=== PATIENT | female | born 1940 | race Caucasian/White ===

== ENCOUNTER → 2018-03-14 12:10 | Outpatient (CLI) | payer MEDICARE, OTHER, SELFPAY ==
--- NOTE | 2018-03-14 | DI.RAD.S_ITS ---
PROCEDURE: XR HIP W PEL IF DONE LT MIN 4V INDICATIONS: PAIN IN LEFT HIP TECHNIQUE: AP pelvis with lateral view(s) of the bilateral hips. COMPARISON: [facility], PELVIS WITH BILATERAL HIPS, 04/24/2011, 9:22. FINDINGS: Bones: No fractures or dislocations. Pelvic ring appears intact. No suspicious bony lesions. Moderate hip joint osteoarthritis which has only slightly worsened from the comparison study from April of 2011.. Soft tissues: The visualized bowel gas pattern is normal. No suspicious soft tissue calcifications. IMPRESSION: Only mild interval worsening of degenerative hip joint osteoarthritis is found bilaterally, with reference to the prior study from April of 2011. Dictated by: Clifton Ross M.D. on 03/14/2018 at 13:52 Approved by: Clifton Ross M.D. on 03/14/2018 at 13:53
== END ==
PROVIDERS: PCP Dermatology; Visit Provider Physician Assistant
DX: M25.552 Pain in left hip (principal); M16.0 Bilateral primary osteoarthritis of hip
CPT/HCPCS: 73522

== ENCOUNTER → 2018-05-07 11:53 | Outpatient (CLI) | payer MEDICARE, OTHER, SELFPAY ==
--- NOTE | 2018-05-07 11:56 | DI.RAD.S_ITS ---
PROCEDURE: XR LUMBAR SPINE 2-3V INDICATIONS: OTHER DORSALGIA TECHNIQUE: 3 views of the lumbar spine were acquired. COMPARISON: [facility], CT, PE STUDY (CTA CHEST), 04/21/2015, 19:14. [facility], CR, CHEST 2 VIEW, 12/17/2014, 11:59. [facility], CR, CHEST 1 VIEW, 04/21/2015, 18:09. FINDINGS: Bones: 5 [id number] vertebrae are present. There is normal bony alignment. No vertebral body compression fractures. No suspicious bony lesions. There is degenerative disc disease, moderate at L2 at L3, and mild at L1-L2, L3-L4 and L4-L5. Mild to moderate facet arthropathy is present at L3 and L4, L4-L5 and L5-S1. Soft tissues: Overlying bowel gas pattern is normal. There is a large calcified gallstone. IMPRESSION: 1. 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 2. A large gallstone. Dictated by: Iesha Schneider M.D. on 05/07/2018 at 17:05 Approved by: Iesha Schneider M.D. on 05/07/2018 at 17:14
== END ==
PROVIDERS: PCP Dermatology; Visit Provider Physician Assistant
DX: M54.89 Other dorsalgia (principal); M47.816 Spondylosis without myelopathy or radiculopathy, lumbar region; M47.817 Spondylosis without myelopathy or radiculopathy, lumbosacral region; M51.36 Other intervertebral disc degeneration, lumbar region; M51.37 Other intervertebral disc degeneration, lumbosacral region; K80.20 Calculus of gallbladder without cholecystitis without obstruction
CPT/HCPCS: 72100

== ENCOUNTER → 2018-05-13 08:51 | Outpatient (CLI) | payer MEDICARE, OTHER, SELFPAY ==
--- NOTE | 2018-05-13 09:06 | DI.CT.S_ITS ---
PROCEDURE: CT CHEST ABD PEL W CON INDICATIONS: PULMONARY NODULE/GALLSTONES TECHNIQUE: After the administration of oral and intravenous contrast, 5 mm thick sections acquired from the lung apices to the symphysis. 5 mm coronal and sagittal reformats were performed, with additional 7 mm coronal MIP reformats through the lungs. For radiation dose reduction, the following was used: automated exposure control, adjustment of mA and/or kV according to patient size. COMPARISON: [facility], CT, PE STUDY (CTA CHEST), 04/21/2015, 19:14. FINDINGS: Image quality: Excellent. CHEST: Lungs and pleura: No acute airspace opacities, and the previously identified scattered bilateral pulmonary nodules identified 04/21/[address] scanning through the chest are virtually identical in appearance to that previously present on today's study. Benign etiology is established given this absence of foreign exchange services manager time, and presumably these represent foci of lung scarring from prior focal inflammatory events. No pleural effusions or pneumothorax. Central and peripheral airways appear patent and normal in caliber. Mediastinum: Heart size is normal. No pericardial effusion. No mediastinal or hilar adenopathy by size criteria. Thoracic aorta and central pulmonary arteries are normal in size. Esophagus is normal in caliber. No hiatal hernia. Chest wall: No axillary or supraclavicular adenopathy by size criteria. Thyroid gland appears normal. ABDOMEN: Solid organs: Liver is normal in size and enhancement. Gallbladder contains a large previously present peripherally calcified gallstone measuring up to 4.0 cm AP and 2.4 cm transverse.. Biliary system is non dilated. Pancreas enhances normally. Spleen is normal in size and enhancement. No adrenal nodules. Kidneys demonstrate normal size and enhancement, without hydronephrosis. Peritoneum and bowel: Bowel loops demonstrate normal wall thickness and caliber. No free fluid or air. Nodes and vessels: No retroperitoneal or mesenteric adenopathy by size criteria. Aorta and inferior vena cava are normal in size. Miscellaneous: No ventral hernias. PELVIS: Genitourinary: Bladder wall thickness is normal. Miscellaneous: No inguinal hernias or adenopathy. Normal appendix right lower quadrant. Mild to moderate sigmoid diverticulosis without acute diverticulitis. Bones: No suspicious bony lesions. No vertebral body compression fractures. IMPRESSION: 1. Scattered within the lung parenchyma are stable appearing small pulmonary nodules which are virtually identical to the nodules previously seen on chest CT scanning from 04/21/15. Benign etiology, presumably from prior focal inflammatory events and subsequent scarring. No new nodules are found. No followup is recommended. 2. There is a large peripherally calcified gallstone again noted within the gallbladder lumen, measuring up to 4 cm AP and 2.4 cm transverse, without associated gallbladder inflammation or biliary obstruction. This also is unchanged from 2016. Dictated by: Clifton Ross M.D. on 05/13/2018 at 11:04 Approved by: Clifton Ross M.D. on 05/13/2018 at 11:15
== END ==
PROVIDERS: PCP Dermatology; Visit Provider Physician Assistant
DX: R91.8 Other nonspecific abnormal finding of lung field (principal); K80.20 Calculus of gallbladder without cholecystitis without obstruction
CPT/HCPCS: 71260; 74177; Q9967

== ENCOUNTER → 2018-07-18 08:51 | Outpatient (CLI) | payer MEDICARE, OTHER, SELFPAY ==
[2018-07-18 10:22] LABS: Alanine Aminotransferase 22 IU/L (9-52); Albumin 4.3 g/dL (3.5-5.0); Albumin Globulin Ratio 1.7 (1.0-2.8); Alkaline Phosphatase 67 U/L (38-126); Aspartate Aminotransferase 21 IU/L (14-36); BUN Creatinine Ratio 28.3 (6-22); Bilirubin Total 0.5 mg/dL (0.2-1.3); Blood Urea Nitrogen 17 mg/dL (7-17); C-Reactive Protein Quant 0.7 mg/dL (<1.0); Calcium 9.5 mg/dL (8.4-10.2); Carbon Dioxide 26 mmol/L (22-32); Chloride 105 mmol/L (98-107); Cholesterol 157 mg/dL (140-199); Estimated Glomerular Filt Rate > 60.0 mL/min (>60); Globulin 2.6 g/dL (1.7-4.1); Glucose 113 mg/dL (80-110); HDL Cholesterol 39 mg/dL (40-60); HEMOLYSIS < 15 (0-50); LDL Cholesterol Calculated 70 mg/dL (<100); Potassium 4.2 mmol/L (3.4-5.1); Sodium 140 mmol/L (137-145); Total Protein 6.9 g/dL (6.3-8.2); Triglycerides 242 mg/dL (35-150)
[2018-07-18 10:47] LABS: Erythrocyte Sedimentation Rate 9 MM/HR (0-20)
[2018-07-18 10:53] LABS: Hemoglobin A1C% w Est Avg Glu 5.6 % (4.0-6.0)
[2018-07-18 11:24] LABS: Thyroid Stimulating Hormone 0.67 uIU/mL (0.47-4.68)
[2018-07-20 14:39] LABS: Parathyroid Hormone Int 56 pg/mL (14-64)
[2018-07-20 15:19] LABS: ANA Screen, IFA Negative (Negative)
== END ==
PROVIDERS: Visit Provider Internal Medicine
DX: N94.819 Vulvodynia, unspecified (principal); R73.03 Prediabetes; E03.9 Hypothyroidism, unspecified; E21.0 Primary hyperparathyroidism; E78.2 Mixed hyperlipidemia; I10 Essential (primary) hypertension
CPT/HCPCS: 36415; 80053; 80061; 83036; 83970; 84443; 85651; 86038; 86140

== ENCOUNTER 2018-12-01 09:51 | Emergency (ER) | payer MEDICARE, OTHER, SELFPAY ==
[2018-12-01 10:04] VITALS: BP 168/84; PULSE 64; RESP 18; TEMP 36.9; O2SAT 97
[2018-12-01] MEDS: LIDOCAINE PATCH 1 EACH ADH..PATCH TOP (11:46)
[2018-12-01] MEDS: CYCLOBENZAPRINE 5 MG TABLET 10 MG PO (11:47)
--- NOTE | 2018-12-01 12:03 | ED_ITS ---
HPI - Back Pain/Injury <Angelito RosasNAOMIE Sanders - Last Filed: 12/01/18 12:40> General Chief Complaint: Back Pain/Injury Stated Complaint: Low back spasms Time Seen by Provider: 12/01/18 11:16 Source: patient Limitations: no limitations History of Present Illness HPI Narrative: This is a 78-year-old female, former smoker, who presents to ED with spouse with chief complain of left lower back pain which radiates to hip and lateral/anterior leg down to ankle. Patient reports this has been ongoing problem but she is here to request some muscle relaxant since she has upcoming trip to [place] in 2 days. Patient denies urinary symptoms, fever, incontinence for urine or stool, saddle anesthesia. Patient reports has some weakness to left leg but this is not a new finding. Patient has been using [id number] Tylenol and Aleve, using alternating heat and warm packs for discomfort at home. She has been feeling spasming discomfort on her left back for last 2 days. Patient reports pain increases with twisting motion and changing in positions. She used to see physical therapy but had stopped last several months due to patient had cholecystectomy surgery. Patient is ambulatory in stable gait. Related Data Home Medications Medication Instructions Recorded Confirmed aspirin 81 mg PO QDAY #0 03/08/16 cetirizine 10 mg PO QDAY #0 03/08/16 losartan [Cozaar] 25 mg #0 03/08/16 metoprolol succinate [Toprol XL] 25 mg PO QDAY #0 03/08/16 simvastatin 20 mg PO HS #0 03/08/16 tramadol 100 mg PO #0 03/08/16 Previous Rx's Medication Instructions Recorded cyclobenzaprine 5 - 10 mg PO BID PRN #7 tab 12/01/18 lidocaine 1 patch TOP DAILY #15 each 12/01/18 Allergies Allergy/AdvReac Type Severity Reaction Status Date / Time Penicillins [PENICILLINS] Allergy Unknown Verified 12/01/18 10:07 tizanidine [TIZANIDINE] Allergy Unknown Verified 12/01/18 10:07 Review of Systems <Angelito BurgosNAOMIE lindquist - Last Filed: 12/01/18 12:40> Review of Systems Narrative: General: Denies fever, chills, fatigue, malaise, sweats. HEENT: Denies sinus pain, ear pain, sore throat, difficulty swallowing, dizziness. Respiratory: Denies dyspnea, cough, wheezing, hemoptysis, sputum. Cardiovascular: Denies chest pain, palpitations, orthopnea, edema. Gastrointestinal: Denies nausea, vomiting, abdominal pain, diarrhea, constipation, melena. : Denies dysuria, frequency, incontinence, hematuria, urinary retention. Musculoskeletal: See HPI Skin: Denies rash, skin lesions, or other. Neurologic: Denies weakness, headache, numbness, change in speech, confusion, seizures, incoordination. Psychiatric: No concerning psychosocial issues. 12-point review of systems is negative except for those stated above. Patient History <NAOMIE Sullivan - Last Filed: 12/01/18 12:40> Surgical History History of parathyroidectomy (Acute) Social History Smoking Status: Former smoker alcohol intake frequency: 0-2 drinks per day Substance Use Type: does not use Exam <NAOMIE Sullivan - Last Filed: 12/01/18 12:40> Narrative Exam Narrative: General appearance: well developed, well nourished, in no acute distress. Head: normocephalic, atraumatic, no scalp lesions, non-tender. Eye: pupil equal, round. EOMI. Nose: nares patent. Oral: mucosa moist. Neck/Thyroid: neck supple, full range of motion, no visible masses. Skin: no suspicious rashes, lesions over visible areas. Warm and dry. Heart: no clubbing, no cyanosis, no edema. Lungs: Breathing even and unlabored. No stridor. No accessory muscles used. Chest: normal shape and expansion. Abdomen: non-obese, non-distended. Neurologic: alert and oriented. Cognitive exam, VIDEO EDITOR and PNS grossly intact on informal exam. Psych: good eye contact, normal affect. Initial Vital Signs Initial Vital Signs: Vital Signs Temperature 98.4 F 12/01/18 10:04 Pulse Rate 64 12/01/18 10:04 Respiratory Rate 18 12/01/18 10:04 Blood Pressure 168/84 H 12/01/18 10:04 Pulse Oximetry 97 12/01/18 10:04 Back/Spine/Pelvis Thoracic/Lumbar Spine: thoracic and lumbar spine normal to inspection, thoraco- lumbar ROM normal (Limited due to pain), pain with thoraco-lumbar ROM, para spinal tenderness (On left side), thoraco-lumbar ROM limited (Due to pain), thoraco-lumbar spasm, No thoracic spinal tenderness and No lumbar spinal ten derness <Shellie Putnam DO - Last Filed: 12/01/18 17:57> Initial Vital Signs Initial Vital Signs: Vital Signs Temperature 98.4 F 12/01/18 10:04 Pulse Rate 64 12/01/18 10:04 Respiratory Rate 18 12/01/18 10:04 Blood Pressure 168/84 H 12/01/18 10:04 Pulse Oximetry 97 12/01/18 10:04 Course <NAOMIE Sullivan - Last Filed: 12/01/18 12:40> Orders Ordered: Discontinued Medications Cyclobenzaprine HCl (Flexeril) 10 mg PO NOW ONE Stop: 12/01/18 11:31 Last Admin: 12/01/18 11:47 Dose: 10 mg Documented by: GIGIE Lidocaine (Lidoderm) 1 each TOP NOW ONE Stop: 12/01/18 11:31 Last Admin: 12/01/18 11:46 Dose: 1 each Documented by: AJ Vital Signs Vital signs: Vital Signs - 8 hr 12/01/18 10:04 12/01/18 12:05 Temperature 98.4 F Pulse Rate 64 51 L Respiratory Rate 18 17 Blood Pressure 168/84 H Blood Pressure [Right Arm] 161/64 H Pulse Oximetry 97 95 <Shellie Putnam DO - Last Filed: 12/01/18 17:57> Orders Ordered: Discontinued Medications Cyclobenzaprine HCl (Flexeril) 10 mg PO NOW ONE Stop: 12/01/18 11:31 Last Admin: 12/01/18 11:47 Dose: 10 mg Documented by: RSTONE Lidocaine (Lidoderm) 1 each TOP NOW ONE Stop: 12/01/18 11:31 Last Admin: 12/01/18 11:46 Dose: 1 each Documented by: AJ Vital Signs Vital signs: Vital Signs - 8 hr 12/01/18 10:04 12/01/18 12:05 Temperature 98.4 F Pulse Rate 64 51 L Respiratory Rate 18 17 Blood Pressure 168/84 H Blood Pressure [Right Arm] 161/64 H Pulse Oximetry 97 95 [facility] - Back Pain/Injury <NAOMIE Sullivan - Last Filed: 12/01/18 12:40> Differential Diagnosis Differential diagnosis: Likely lumbar radiculopathy Medical Records Attestation: I reviewed the patient's medical records. [facility] Narrative Medical decision making narrative: This is a 78-year-old female with a history of left-sided low back pain with spasm/tightness with sciatica who presents to ED requesting muscle relaxant in anticipation for trip to [place] in 2 days. Patient does not have fever, rash, incontinence, saddle anesthesia. Patient was medicated with 1st dose of lidocaine patch and Flexeril and discharged to home with same medications. Medication precautions for Flexeril discussed with the patient. Patient advised to follow up with primary care physician and physical therapist for ongoing back pain. Return precautions were discussed and patient verbalized understanding and agrees with the treatment plan. Discharge Plan Departure Patient Disposition: Home Clinical Impression: Low back pain Qualifiers: Chronicity: unspecified Back pain laterality: left Sciatica presence: with sciatica Sciatica laterality: sciatica of left side Qualified Code(s): M54.42 - Lumbago with sciatica, left side Discharge Date/Time: 12/01/18 12:11 Instructions: DI for Low Back Pain Activity Restrictions/Additional Instructions: You have been diagnosed with [left-sided low back pain with sciatica. Please continue with her physical therapy and home exercises]. What to do: *Take your medications as directed. Lidocaine patch stays on for 12 hours and off for 12 hours. Flexeril is muscle relaxant any may make you sleepy so please take precautions such as not driving, drinking alcohol, or operating heavy equipments. Continue to take [id number] Tylenol and or Motrin/Aleve with food. *Follow up with your primary care provider in 2-3 days, call for an appointment. Let them know you were seen in the ED and that we asked you to be seen in follow up. *Return to ED if you have any new, worsening, or concerning symptoms, such as [worsening discomfort, increasing weakness to her legs, incontinence, rash on your low back, fever, urinary symptoms, or any acute concerns. Have a safe trip to [place]]. Prescriptions: New cyclobenzaprine 10 mg tablet 5 - 10 mg PO BID PRN (Reason: muscle spasm) Qty: 7 RF: 0 lidocaine 5 % adhesive patch,medicated 1 patch TOP DAILY Qty: 15 RF: 0 No Action cetirizine 10 MG tablet,chewable 10 mg PO QDAY Qty: 0 RF: 0 simvastatin 20 MG tablet 20 mg PO HS Qty: 0 RF: 0 losartan [Cozaar] 25 MG tablet 25 mg Qty: 0 RF: 0 aspirin 81 MG tablet,chewable 81 mg PO QDAY Qty: 0 RF: 0 metoprolol succinate [Toprol XL] 25 MG tablet extended release 24 hr 25 mg PO QDAY Qty: 0 RF: 0 tramadol 100 MG tablet, ER multiphase 24 hr 100 mg PO Qty: 0 RF: 0 Referrals: Melody Lucero MD [Primary Care Provider] -
[2018-12-01 12:05] VITALS: BP 161/64; PULSE 51; RESP 17; O2SAT 95
== END 2018-12-01 12:11 | disposition home or self-care (01) ==
PROVIDERS: Emergency Provider Nurse Practitioner Family; PCP Internal Medicine
DX: M54.42 Lumbago with sciatica, left side (principal)
CPT/HCPCS: 99282; 99283

== ENCOUNTER → 2019-01-28 14:24 | Outpatient (ROUT) | payer MEDICARE, OTHER, SELFPAY | PROVIDERS: PCP Internal Medicine; Visit Provider Internal Medicine | DX: R10.2 Pelvic and perineal pain (principal) | CPT/HCPCS: 87077; 87086; 87186 ==

== ENCOUNTER → 2019-02-17 16:00 | Outpatient (ROUT) | payer MEDICARE, OTHER, SELFPAY ==
[2019-02-17 16:24] LABS: Hematocrit 44.9 % (36-46); Mean Corpuscular HGB Conc 33.5 % (30-36); Mean Corpuscular Hemoglobin 30.3 PG (26-34); Mean Corpuscular Volume 90.2 fL (80-100); Platelet Count 221 X10^3/uL (150-400); Red Blood Cell Count 4.97 X10^6/uL (4.0-5.2); Red Cell Distribution Width 13.4 % (11.6-14.8); White Blood Cell Count 7.7 X10^3/uL (4.5-11.0)
[2019-02-17 16:34] LABS: Alanine Aminotransferase 26 IU/L (<35); Albumin 4.4 g/dL (3.5-5.0); Albumin Globulin Ratio 1.8 (1.0-2.8); Alkaline Phosphatase 65 U/L (38-126); Aspartate Aminotransferase 26 IU/L (14-36); BUN Creatinine Ratio 21.4 (6-22); Bilirubin Total 0.6 mg/dL (0.2-1.3); Blood Urea Nitrogen 15 mg/dL (7-17); Carbon Dioxide 28 mmol/L (22-32); Chloride 101 mmol/L (98-107); Estimated Glomerular Filt Rate > 60.0 mL/min (>60); Globulin 2.5 g/dL (1.7-4.1); Glucose 105 mg/dL (80-110); HEMOLYSIS < 15 (0-50); Potassium 4.4 mmol/L (3.4-5.1); Sodium 139 mmol/L (137-145); Total Protein 6.9 g/dL (6.3-8.2)
[2019-02-17 18:55] LABS: Neutrophils Absolute Manual 4928 /uL (3000-5900); Total Cells Counted 100
== END ==
PROVIDERS: PCP Internal Medicine; Visit Provider Internal Medicine
DX: R10.9 Unspecified abdominal pain (principal)
CPT/HCPCS: 80053; 85025

== ENCOUNTER → 2019-02-18 10:35 | Outpatient (CLI) | payer MEDICARE, OTHER, SELFPAY ==
--- NOTE | 2019-02-18 11:19 | DI.CT.S_ITS ---
PROCEDURE: CT ABDOMEN PELVIS W CON INDICATIONS: Unspecified abdominal pain TECHNIQUE: After the administration of oral and intravenous contrast, 5 mm thick sections acquired from the diaphragms to the symphysis. 5 mm thick coronal and sagittal reformats were performed. For radiation dose reduction, the following was used: automated exposure control, adjustment of mA and/or kV according to patient size. COMPARISON: [facility], CT, PE STUDY (CTA CHEST), 04/21/2015, 19:14. [facility], CT, CT CHEST ABD PEL W CON, 05/13/2018, 10:11. FINDINGS: Image quality: Excellent. ABDOMEN: Lung bases: There multiple lung nodules at lung bases bilaterally, unchanged in size compared to 05/13/2018. Heart size is normal. There is a small hiatal hernia. Solid organs: Mild hepatic steatosis. Liver is normal in size and enhancement. Gallbladder is nonvisualized, consistent with cholecystectomy. Biliary system is non-dilated. Pancreas enhances normally. Spleen is normal in size and enhancement. No adrenal nodules. Kidneys are normal in size and enhancement, without hydronephrosis. Peritoneum and bowel: Stomach, small bowel, and colon loops are normal in caliber and wall thickness. Normal appendix. There are multiple colonic diverticula. No findings to suggest diverticulitis. No free fluid or air. Nodes and vessels: No retroperitoneal or mesenteric adenopathy. Aorta and inferior vena cava are normal in caliber. Miscellaneous: No ventral hernias. PELVIS: Genitourinary: Bladder wall thickness is normal. Uterus is absent consistent with hysterectomy. Ovaries are unremarkable. No pathological free fluid in pelvis. Miscellaneous: No inguinal hernias or adenopathy. Bones: No suspicious bony lesions. No vertebral body compression fractures. IMPRESSION: 1. Diverticulosis without acute diverticulitis. 2. Multiple small pulmonary nodules at lung bases bilaterally, unchanged in size. 3. Small hiatal hernia. 4. Hepatic steatosis. Dictated by: Iesha Schneider M.D. on 02/18/2019 at 16:12 Approved by: Iesha Schneider M.D. on 02/18/2019 at 18:22
== END ==
PROVIDERS: PCP Internal Medicine; Visit Provider Internal Medicine
DX: R10.9 Unspecified abdominal pain (principal); R91.8 Other nonspecific abnormal finding of lung field; K44.9 Diaphragmatic hernia without obstruction or gangrene; K76.0 Fatty (change of) liver, not elsewhere classified; K57.90 Diverticulosis of intestine, part unspecified, without perforation or abscess without bleeding
CPT/HCPCS: 74177; Q9967

== ENCOUNTER → 2019-08-12 18:20 | Outpatient (ROUT) | payer MEDICARE, OTHER, SELFPAY | PROVIDERS: PCP Internal Medicine; Visit Provider Internal Medicine | DX: N76.1 Subacute and chronic vaginitis (principal) | CPT/HCPCS: 87070; 87205 ==

== ENCOUNTER → 2019-08-21 14:57 | Outpatient (ROUT) | payer MEDICARE, OTHER, SELFPAY ==
[2019-08-21 15:36] LABS: Alanine Aminotransferase 26 IU/L (<35); Albumin 4.1 g/dL (3.5-5.0); Albumin Globulin Ratio 1.8 (1.0-2.8); Alkaline Phosphatase 63 U/L (38-126); Aspartate Aminotransferase 33 IU/L (14-36); BUN Creatinine Ratio 23.1 (6-22); Bilirubin Total 0.6 mg/dL (0.2-1.3); Blood Urea Nitrogen 15 mg/dL (7-17); Calcium 9.9 mg/dL (8.4-10.2); Carbon Dioxide 27 mmol/L (22-32); Chloride 104 mmol/L (98-107); Cholesterol 123 mg/dL (140-199); Estimated Glomerular Filt Rate > 60.0 mL/min (>60); Globulin 2.3 g/dL (1.7-4.1); Glucose 112 mg/dL (80-110); HDL Cholesterol 46 mg/dL (40-60); HEMOLYSIS 16 (0-50); LDL Cholesterol Calculated 48 mg/dL (<100); Potassium 4.4 mmol/L (3.4-5.1); Sodium 137 mmol/L (137-145); Total Protein 6.4 g/dL (6.3-8.2); Triglycerides 145 mg/dL (35-150)
== END ==
PROVIDERS: PCP Internal Medicine; Visit Provider Internal Medicine
DX: R73.03 Prediabetes (principal)
CPT/HCPCS: 80053; 80061; 83036

== ENCOUNTER → 2019-09-19 09:08 | Outpatient (CLI) | payer MEDICARE, OTHER, SELFPAY ==
--- NOTE | 2019-09-19 | DI.MRI.S_ITS ---
PROCEDURE: MR CERVICAL SPINE WO CON INDICATIONS: Radiculopathy, cervical region TECHNIQUE: Noncontrast sagittal T1 spin echo and T2 fast spin echo, sagittal STIR, foraminal oblique sagittal T2 fast spin echo, and axial gradient echo or T2 fast spin echo through the cervical spine. COMPARISON: [facility], , C-SPINE WITHOUT CONTRAST, 02/18/2015, 7:33. FINDINGS: There are postsurgical changes of C4-C7 ACDF by means of anterior plate and screws with interbody devices. Straightening of the usual cervical lordosis at the operative levels. Anterolisthesis of C3 on C4 measuring approximately 2 millimeters. Otherwise normal alignment. Vertebral body heights maintained. No suspicious focal marrow signal abnormality or bone marrow edema demonstrated. 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 Otherwise normal cord signal. No syrinx. Prevertebral and paraspinous soft tissues unremarkable. C2-C3: No spinal canal or neural foraminal stenosis. C3-C4: Disc osteophyte complex flattens the ventral cord producing overall mild spinal canal stenosis. Facet and uncovertebral hypertrophy contribute to moderate right and mild left neural foraminal stenosis. C4-C5: Posterior disc osteophyte complex flattens the ventral cord on the left. There is overall mild spinal canal stenosis. Facet and uncovertebral hypertrophy contribute to mild neural foraminal narrowing on the left. C5-C6: No spinal canal stenosis despite posterior disc osteophyte complex. Facet and uncovertebral hypertrophy contribute to mild bilateral neural foraminal stenosis. C6-C7: Posterior disc osteophyte complex flattens the ventral cord. Facet and uncovertebral hypertrophy contribute to mild bilateral neural foraminal stenosis. C7-T1: Posterior disc osteophyte complex without mass effect upon the cord. Facet and uncovertebral hypertrophy contribute to moderate bilateral neural foraminal stenosis. IMPRESSION: Postsurgical changes of C4-C7 ACDF. Multilevel multifactorial degenerative changes. Varying degrees of neural foraminal narrowing is worst at C3-C4 and C7-T1, consistent with adjacent segment disease. Dictated by: Agus Benedict M.D. on 09/19/2019 at 10:43 Approved by: Agus Benedict M.D. on 09/19/2019 at 11:01
== END ==
PROVIDERS: PCP Internal Medicine; Referring Provider Internal Medicine; Visit Provider Internal Medicine
DX: M48.02 Spinal stenosis, cervical region (principal); M48.03 Spinal stenosis, cervicothoracic region; M47.22 Other spondylosis with radiculopathy, cervical region; Z98.1 Arthrodesis status
CPT/HCPCS: 72141

== ENCOUNTER → 2019-11-29 11:08 | Outpatient (CLI) | payer MEDICARE, OTHER, SELFPAY ==
[2019-12-01 02:01] LABS: COVID19 Sendout Not Detected (Not Detect)
== END ==
PROVIDERS: PCP Internal Medicine; Visit Provider Student in an Organized Health Care Education/Training Program
DX: Z11.59 Encounter for screening for other viral diseases (principal)
CPT/HCPCS: 87635

== ENCOUNTER 2020-05-02 17:06 | Emergency (ER) | payer MEDICARE, OTHER, SELFPAY ==
[2020-05-02 17:21] VITALS: BP 179/75; PULSE 60; RESP 18; TEMP 36.6; O2SAT 99; BMI 32.0
--- NOTE | 2020-05-02 18:19 | ED.NECK ---
HPI - Neck Pain/Injury General Chief Complaint: Neck Pain/Injury Stated Complaint: RT UPPER BODY PAIN Time Seen by Provider: 05/02/20 18:08 Source: patient and family Mode of arrival: Ambulatory Limitations: no limitations History of Present Illness HPI Narrative: 79-year-old female former smoker with extensive, known history of cervical issues including spinal stenosis and known disc issue presents with her in the chief complaint of right-sided neck pain with radiation into her right arm. She states that she had been largely in her normal state of health until something happened a few days ago when she was walking and she felt sudden increased pain in the right side of her neck and down her right arm. She states it is sharp and stabbing and made worse with motion of her neck. She denies any numbness, tingling or weakness. She denies any chest pain, back pain or shortness of breath. She denies any trauma or injury. She has had no fever or chills. She is not dizzy nor weak or lightheaded. She denies neurologic symptoms such as blurred vision or trouble with speech. MD complaint: neck pain Onset (ago): day(s) Radiation: right lateral, right shoulder and right upper extremity Severity: severe Quality: sharp and stabbing Duration: constant Relieving factors: remaining still Exacerbating factors: movement of neck Associated symptoms: none Treatments prior to arrival: prescription analgesic Related Data Home Medications Medication Instructions Recorded Confirmed aspirin 81 mg PO QDAY #0 03/08/16 cetirizine 10 mg PO QDAY #0 03/08/16 losartan [Cozaar] 25 mg #0 03/08/16 metoprolol succinate [Toprol XL] 25 mg PO QDAY #0 03/08/16 simvastatin 20 mg PO HS #0 03/08/16 tramadol 100 mg PO #0 03/08/16 Previous Rx's Medication Instructions Recorded cyclobenzaprine 5 - 10 mg PO BID PRN #7 tab 12/01/18 lidocaine 1 patch TOP DAILY #15 each 12/01/18 gabapentin 300 mg PO BEDTIME #14 cap 05/02/20 hydrocodone-acetaminophen 1 tab PO Q4-6H PRN #20 tab 05/02/20 methylprednisolone [Medrol (Tab)] See Rx Instructions .ROUTE 05/02/20 .COMPLEX #21 ea Allergies Allergy/AdvReac Type Severity Reaction Status Date / Time metronidazole Allergy Severe Hives Verified 05/02/20 17:27 Penicillins [PENICILLINS] Allergy Unknown Verified 05/02/20 17:27 tizanidine [TIZANIDINE] Allergy Unknown Verified 05/02/20 17:27 Review of Systems Constitutional Constitutional: Denies chills, Denies fatigue, Denies fever(s), Denies frequent falls, Denies lethargy and Denies weakness Eyes Eyes: Denies change in vision, Denies eye discharge, Denies irritation and Denies loss of vision ENT Ears, Nose, Mouth, and Throat: Denies change in voice, Denies dizziness, Reports neck pain, Denies sore throat and Denies throat swelling Cardiovascular Cardiovascular: Denies chest pain, Denies irregular heart rhythm, Denies lightheadedness, Denies palpitations, Denies dyspnea, Denies dyspnea on exertion and Denies orthopnea Respiratory Respiratory: Denies cough, Denies dyspnea, Denies dyspnea on exertion and Denies wheezing Gastrointestinal Gastrointestinal: Denies abdominal pain, Denies change in bowel habits, Denies diarrhea, Denies nausea and Denies vomiting Musculoskeletal Musculoskeletal: Reports neck pain, Denies numbness and Reports radiating pain into limb Integumentary/Breasts Skin/Breast: Denies pruritus, Denies erythema, Denies rash and Denies wounds Neurologic Neurologic: Denies behavioral changes, Denies confusion, Denies dizziness, Denies frequent falls, Denies loss of vision, Denies numbness and Denies weakness Psychiatric Psychiatric: Denies anxiety, Denies behavioral changes, Denies confusion, Denies depression, Denies homicidal ideation and Denies suicidal ideation Endocrine Endocrine: Denies fatigue, Denies flushing and Denies palpitations Hematologic/Lymphatic Hematologic/Lymphatic: Denies easy bruising Allergic/Immunologic Allergic/Immunologic: Denies urticaria, Denies throat swelling and Denies wheezing Patient History Surgical History History of parathyroidectomy Social History Smoking Status: Former smoker Smoking Status: Former smoker alcohol intake frequency: 0-2 drinks per day Substance Use Type: does not use Exam Narrative Exam Narrative: GENERAL: [79] year old patient appears stated age. Well-nourished, well-developed patient, in mild distress. Obviously uncomfortable, resistant to turning her head HEAD: Atraumatic. Normocephalic. EYES: Pupils equal round and reactive. Extraocular motions intact. No scleral icterus. No injection or drainage. ENT: Nose without bleeding, purulent drainage. Throat without erythema, tonsillar hypertrophy or exudate. Airway patent. NECK: Trachea midline. Right-sided neck pain, no midline or bony tenderness, no step-offs or crepitance. Axial loading increase his pain down her right arm CARDIOVASCULAR: Regular rate and rhythm without murmurs, gallops, or rubs. RESPIRATORY: Clear to auscultation. Breath sounds equal bilaterally. No wheezes, rales, or rhonchi. GASTROINTESTINAL: Abdomen soft, non-tender, nondistended. EXTREMITIES: No edema or joint tenderness. No numbness, tingling or measurable weakness and right upper extremity. 5/5 strength BACK: Nontender without deformity or crepitance. No flank tenderness. NEURO: AOx3. SKIN: No rash or erythema of visible areas Initial Vital Signs Initial Vital Signs: Vital Signs Temperature 97.8 F 05/02/20 17:21 Pulse Rate 60 05/02/20 17:21 Respiratory Rate 18 05/02/20 17:21 Blood Pressure 179/75 H 05/02/20 17:21 Pulse Oximetry 99 05/02/20 17:21 Course Orders Ordered: Discontinued Medications Hydrocodone Bitart/Acetaminophen (Hydrocodone/Acet 5/325 Prepack) 1 bottle MISC SEEINSTR ONE Stop: 05/02/20 21:06 Last Admin: 05/02/20 21:15 Dose: 1 bottle Documented by: JOSE Dexamethasone (Dexamethasone 4 Mg Tablet) 4 mg PO NOW ONE Stop: 05/02/20 21:06 Last Admin: 05/02/20 21:15 Dose: 4 mg Documented by: JOSE Gabapentin (Gabapentin 300 Mg Capsule) 300 mg PO NOW ONE Stop: 05/02/20 21:06 Last Admin: 05/02/20 21:19 Dose: 300 mg Documented by: JOSE Vital Signs Vital signs: Vital Signs - 8 hr 05/02/20 17:21 05/02/20 21:30 Temperature 97.8 F Pulse Rate 60 67 Respiratory Rate 18 14 Blood Pressure 179/75 H 163/72 H Pulse Oximetry 99 95 MDM - Neck Pain/Injury MDM Narrative Medical decision making narrative: Patient with known chronic neck problems, established relationship with Orthopedics, with pain radiating into right arm. No evidence of numbness or weakness. Worsening with axial loading. Other diagnoses such as dissection or meningitis considered, but thought unlikely given lack of fever, confusion, neurologic symptoms. Return precautions given, questions answered to her apparent satisfaction. Discharge Plan Departure Patient Disposition: Home Clinical Impression: Cervical radiculopathy Instructions: DI for Cervical Radiculopathy, DI for Neck Pain Activity Restrictions/Additional Instructions: *You have been diagnosed with [cervical radiculopathy] *What to do: *Take medications as directed: Prescriptions electronically transmitted to [facility] at your request *Follow up with Dr. Holbrook at [facility], call tomorrow morning for an appointment. Let them know you were seen in the Emergency Department and that we ask that you be seen in follow up *Return to ER if you should have any new, worsening or concerning symptoms, such as [weakness, tingling, fever greater than 101 F, chest pain, shortness of breath, lightheadedness or other bothersome symptoms] Prescriptions: New hydrocodone-acetaminophen 5-325 mg tablet 1 tab PO Q4-6H PRN (Reason: pain) Qty: 20 RF: 0 gabapentin 300 mg capsule 300 mg PO BEDTIME Qty: 14 RF: 0 methylprednisolone [Medrol (Tab)] 4 mg tablets,dose pack See Rx Instructions .ROUTE .COMPLEX Qty: 21 RF: 0 No Action cetirizine 10 MG tablet,chewable 10 mg PO QDAY Qty: 0 RF: 0 simvastatin 20 MG tablet 20 mg PO HS Qty: 0 RF: 0 losartan [Cozaar] 25 MG tablet 25 mg Qty: 0 RF: 0 aspirin 81 MG tablet,chewable 81 mg PO QDAY Qty: 0 RF: 0 metoprolol succinate [Toprol XL] 25 MG tablet extended release 24 hr 25 mg PO QDAY Qty: 0 RF: 0 tramadol 100 MG tablet, ER multiphase 24 hr 100 mg PO Qty: 0 RF: 0 cyclobenzaprine 10 mg tablet 5 - 10 mg PO BID PRN (Reason: muscle spasm) Qty: 7 RF: 0 lidocaine 5 % adhesive patch,medicated 1 patch TOP DAILY Qty: 15 RF: 0 Referrals: Martha Aldana MD [Primary Care Provider] -
[2020-05-02] MEDS: dexAMETHasone 4 MG TABLET PO (21:15)
[2020-05-02] MEDS: HYDROCODONE/ACET 5/325 PREPACK 1 BOTTLE MISC (21:15)
[2020-05-02] MEDS: GABAPENTIN 300 MG CAPSULE PO (21:19)
[2020-05-02 21:30] VITALS: BP 163/72; PULSE 67; RESP 14; O2SAT 95
== END 2020-05-02 21:38 | disposition home or self-care (01) ==
PROVIDERS: Emergency Provider Emergency Medicine; PCP Internal Medicine
DX: M54.12 Radiculopathy, cervical region (principal)
CPT/HCPCS: 99283

== ENCOUNTER → 2020-08-31 08:57 | Outpatient (CLI) | payer MEDICARE, OTHER, SELFPAY ==
[2020-08-31 10:32] LABS: Glucose 114 mg/dL (80-110)
== END ==
PROVIDERS: PCP Internal Medicine; Referring Provider Internal Medicine; Visit Provider Internal Medicine
DX: E11.9 Type 2 diabetes mellitus without complications (principal)
CPT/HCPCS: 36415; 82947

== ENCOUNTER → 2022-05-29 10:39 | Outpatient (CLI) | payer OTHER, SELFPAY ==
--- NOTE | 2022-05-29 | DI.RAD.S_ITS ---
PROCEDURE: XR LUMBAR SPINE 2-3V INDICATIONS: low back pain with left-sided sciatica TECHNIQUE: 3 views of the lumbar spine were acquired. COMPARISON: [facility], [facility], XR LUMBAR SPINE 2-3V, 05/07/2018, 12:06. [facility], [facility], L-SPINE 2-3 VIEWS, 08/04/2010, 12:20. FINDINGS: Bones: 5 [id number] vertebrae are present. Grade 1 anterolisthesis of L4 on L5, new from prior. Facet arthrosis L3 through S1. Mild disc height loss at all levels. Soft tissues: Overlying bowel gas pattern is normal. No suspicious soft tissue calcifications. Gallstone present. IMPRESSION: Mild, multilevel degenerative disc disease and lower lumbar facet arthrosis. Grade 1 anterolisthesis of L4 on L5, secondary to facet arthrosis. Cholelithiasis. Dictated by: Ramiro Lucas M.D. on 05/29/2022 at 13:15 Approved by: Ramiro Lucas M.D. on 05/29/2022 at 13:19
== END ==
PROVIDERS: PCP Internal Medicine; Referring Provider Internal Medicine; Visit Provider Internal Medicine
DX: M51.16 Intervertebral disc disorders with radiculopathy, lumbar region (principal); M47.26 Other spondylosis with radiculopathy, lumbar region; M47.27 Other spondylosis with radiculopathy, lumbosacral region; K80.20 Calculus of gallbladder without cholecystitis without obstruction
CPT/HCPCS: 72100

== ENCOUNTER → 2022-07-04 10:31 | Outpatient (CLI) | payer OTHER, SELFPAY ==
--- NOTE | 2022-07-04 | DI.MRI.S_ITS ---
PROCEDURE: MR LUMBAR SPINE WO CON INDICATIONS: SPINAL STENOSIS,LUMBAR REGION TECHNIQUE: Noncontrast sagittal T1 spin echo and T2 fast echo, sagittal STIR, and T2 fast spin echo through the lumbar spine. In cases with scoliosis, additional coronal T2 fast spin echo may be performed. COMPARISON: [facility], MR, L-SPINE WITHOUT CONTRAST, 04/23/2007, 7:07. FINDINGS: Image quality: Excellent. Alignment and Curvature: There is normal bony alignment. Bone Marrow: Marrow is of normal overall signal. No acute vertebral body compression fractures. Spinal Cord: Conus medullaris terminates at the T12-L1 level. Visualized cord demonstrates normal signal and size. Paraspinous Soft Tissues: No paravertebral masses. T12-L1: Mild disc bulge. No canal stenosis or foraminal stenosis. L1-L2: Mild disc bulge. No canal stenosis or foraminal stenosis. L2-L3: Mild disc bulge. Facet hypertrophy. No significant canal stenosis. No significant bilateral foraminal stenosis. L3-L4: Progression of findings. Disc bulge. Facet hypertrophy. Epidural lipomatosis. [id number] canal stenosis. [id number] bilateral foraminal stenosis. L4-L5: Interval progression. Disc bulge. Significant interval increase in facet hypertrophy, prominent. Findings include a small medially directed facet joint cyst off of the right facet. There is now severe canal stenosis. Moderate to severe stenosis of the medial aspect of the right foramen with mild resultant right foraminal L4 nerve root impingement. Moderate left foraminal narrowing with mild flattening deformity on the exiting left L4 nerve root. L5-S1: Disc bulge. Somewhat prominent facet hypertrophy. No central canal stenosis. Moderate left foraminal narrowing with mild flattening deformity on the exiting left L5 nerve root. IMPRESSION: 1. Interval progression at L3-L4 and L4-L5. 2. Canal stenosis is mild to moderate at L3-L4 and is severe at L4-L5. In addition, there is moderate to severe right foraminal stenosis at L4-L5. 3. Multilevel facet arthropathy. Dictated by: Nasir Romo M.D. on 07/04/2022 at 12:49 Approved by: Nasir Romo M.D. on 07/04/2022 at 12:57
== END ==
PROVIDERS: PCP Internal Medicine; Referring Provider Orthopaedic Surgery Orthopaedic Surgery of the Spine; Visit Provider Orthopaedic Surgery Orthopaedic Surgery of the Spine
DX: M48.062 Spinal stenosis, lumbar region with neurogenic claudication (principal); M47.816 Spondylosis without myelopathy or radiculopathy, lumbar region
CPT/HCPCS: 72148

== ENCOUNTER → 2022-07-10 09:30 | Outpatient (CLI) | payer OTHER, SELFPAY ==
[2022-07-10 10:10] LABS: Add Manual Diff / Slide Review NO; Basophils Absolute Auto 0 /uL (0-100); Basophils Percent Auto 0.5 % (0-2); Eosinophils Absolute Auto 200 /uL (0-450); Eosinophils Percent Auto 2.5 % (2-4); Hematocrit 42.2 % (36-46); Hemoglobin 14.2 g/dL (12.0-16.0); Lymphocytes Absolute Auto 2000 /uL (1100-4500); Lymphocytes Percent Auto 29.7 % (25-40); Mean Corpuscular HGB Conc 33.6 % (30-36); Mean Corpuscular Hemoglobin 29.8 PG (26-34); Mean Corpuscular Volume 88.7 fL (80-100); Monocytes Absolute Auto 700 /uL (0-900); Monocytes Percent Auto 10.3 % (3-14); Neutrophils Absolute Auto 3800 /uL (1500-7000); Platelet Count 201 X10^3/uL (150-400); Red Blood Cell Count 4.76 X10^6/uL (4.0-5.2); Red Cell Distribution Width 13.6 % (11.6-14.8); White Blood Cell Count 6.8 X10^3/uL (4.5-11.0)
[2022-07-10 10:18] LABS: BUN Creatinine Ratio 23.8 (6-22); Blood Urea Nitrogen 15 mg/dL (7-17); Carbon Dioxide 27 mmol/L (22-32); Chloride 102 mmol/L (98-107); Estimated Glomerular Filt Rate > 60 mL/min (>60); Glucose 121 mg/dL (80-110); HEMOLYSIS < 15 (0-50); Potassium 4.3 mmol/L (3.4-5.1); Sodium 137 mmol/L (137-145)
[2022-07-11 07:43] LABS: x Labcorp Estim. Avg Glu (eAG) 128 mg/dL (.); x Labcorp Hemoglobin A1c 6.1 % (4.8-5.6)
== END ==
PROVIDERS: PCP Internal Medicine; Referring Provider Orthopaedic Surgery Orthopaedic Surgery of the Spine; Visit Provider Orthopaedic Surgery Orthopaedic Surgery of the Spine
DX: Z01.818 Encounter for other preprocedural examination (principal); R73.9 Hyperglycemia, unspecified; Z01.812 Encounter for preprocedural laboratory examination
CPT/HCPCS: 36415; 80048; 83036; 85025; 93005; 93010

== ENCOUNTER 2022-08-15 19:08 | Observation (INO) | payer OTHER, SELFPAY ==
[2022-08-15] VITALS (8 sets, daily range): BP systolic 111–175; BP diastolic 59–84; PULSE 71–80; RESP 18–27; TEMP 36.7; O2SAT 95–98; BMI 32.9
--- NOTE | 2022-08-15 19:31 | ED_ITS ---
HPI - Neuro Symptoms/Deficit General Chief Complaint: Neuro Symptoms/Deficit Stated Complaint: thinks TIA - unable to form words Time Seen by Provider: 08/15/22 19:21 Source: patient Mode of arrival: Ambulatory Limitations: no limitations History of Present Illness HPI Narrative: Patient is an 82-year-old female who is here for evaluation of what she thinks is a TIA. She states she was at her normal state of health. Was sitting on the couch watching TV with her when she had about 1 minute of an episode where she states she could not speak. She did have a slight headache at the time. No other associated symptoms. Completely resolved after about 1 minute and right now she has no symptoms. She is on metformin but she states she is only ?prediabetic. Has a history of PVCs but no prior history of arrhythmias. No prior history of stroke. Not on anticoagulation. No chest pain. No shortness of breath. She is scheduled to have lower back surgery tomorrow morning. On Anticoagulants: No Related Data Home Medications Medication Instructions Recorded Confirmed metoprolol succinate 25 mg 25 mg PO QPM ##0 03/08/16 08/10/22 tablet,extended release 24 hr (Toprol XL) acetaminophen 500 mg tablet 500 mg PO TID-QID 08/10/22 08/10/22 aspirin 81 mg capsule 81 mg PO DAILY 08/10/22 08/10/22 celecoxib 200 mg capsule 200 mg PO BID 08/10/22 08/10/22 doxycycline hyclate 100 mg tablet 100 mg PO Q OTHER DAY Chronic UTI 08/10/22 08/10/22 levothyroxine 125 mcg tablet 125 mcg PO DAILY 08/10/22 08/10/22 metformin 500 mg tablet 500 mg PO DAILY Pre-diabetes 08/10/22 08/10/22 rosuvastatin 5 mg tablet 5 mg PO QPM 08/10/22 08/10/22 trospium 20 mg tablet 20 mg PO BID 08/10/22 08/10/22 vit C 250 mg-vit E 90 mg-zinc 40 1 tab PO BID 08/10/22 08/10/22 mg-copper 1 [id number]-[id number] capsule (PreserVision AREDS-2) Previous Rx's Medication Instructions Recorded cyclobenzaprine 10 mg tablet 5 - 10 mg PO BID PRN muscle spasm 12/01/18 #7 tabs gabapentin 300 mg capsule 300 mg PO BEDTIME #14 caps 05/02/20 Allergies Allergy/AdvReac Type Severity Reaction Status Date / Time metronidazole Allergy Severe Hives Verified 05/02/20 17:27 Penicillins [PENICILLINS] Allergy Unknown Pt does Verified 08/10/22 10:14 not recall reaction tizanidine [TIZANIDINE] Allergy Unknown Pt does Verified 08/10/22 10:14 not recall reaction Review of Systems Hematologic/Lymphatic On Anticoagulants: No Patient History Medical History Anesthesia complication History of COVID-19 (10/2021) Hyperparathyroidism Hypothyroidism SARAH on CPAP RBBB (right bundle branch block) Seasonal allergies Surgical History History of hysterectomy History of lumbar spinal fusion (04/2015) History of parathyroidectomy (08/14/16) Hx laparoscopic cholecystectomy (06/24/18) Hx of bilateral cataract extraction Hx of colonoscopy (11/2012) Hx of fusion of cervical spine (2015) S/P epidural steroid injection Family History (Updated 08/15/22 @ 22:44 by LYLE Givens) Father Heart attack Mother History of nephrectomy Sister History of multiple cerebrovascular accidents (CVAs) Social History household members: spouse Smoking Status: Former smoker alcohol intake: current Smoking Status: Former smoker alcohol intake frequency: a few times a week Substance Use Type: does not use Exam Initial Vital Signs Initial Vital Signs: Vital Signs Pulse Rate 80 08/15/22 19:15 Respiratory Rate 18 08/15/22 19:15 Blood Pressure 175/84 H 08/15/22 19:15 Pulse Oximetry 98 08/15/22 19:15 Oxygen Delivery Method Room Air 08/15/22 19:15 Const General: cooperative, comfortable and No ill appearing HENMT Head: normal to inspection and normocephalic Resp Effort & Inspection: normal respiratory effort Auscultation: clear to auscultation bilaterally Cardio Rate: regular rate Rhythm: regular rhythm GI Inspection: normal to inspection Skin General: no rashes or lesions noted Neuro General: patient alert, patient awake, patient oriented x3, gait normal and moves all extremities Cranial Nerves: CN's II-XI intact bilaterally Cognition: normal cognition Speech: speech normal Sensory Exam: no sensory deficits noted Extrem General: normal to inspection and capillary refill normal Scores ABCD2 Age >= 60 years: yes Initial BP. Either SBP >= 140 or DBP >= 90.: yes Clinical features of the TIA: speech disturbance without weakness Duration of symptoms: < 10 minutes History of diabetes: yes ABCD2 Score: 4 GCS [place] coma scale eye opening: Spontaneous [place] coma scale verbal response: Orientated [place] coma scale motor response: Obey commands [place] coma scale total score: 15 NIH Stroke Scale Level of Conciousness: Alert, keenly responsive Ask month/age: Answers both questions correctly. Open/close eyes, close hand: Performs both tasks correctly Best gaze horizontal: Normal Visual gary: No visual loss Facial palsy: Normal symetrical movement Left arm drift: No drift for full 10 sec Right arm drift: No drift for full 10 sec Left leg drift: No drift for full 5 sec Right leg drift: No drift for full 5 sec Limb ataxia: Absent Sensory on face/arms/legs: Normal, no sensory loss Best language: No aphasia, normal Dysarthria: Normal Extinction or inattention: No abnormality Total NIH Stroke scale score: 0 Course Orders Ordered: ED Orders 08/15/22 19:32 CT angio head and neck Stat CT head/brain wo con Stat EKG-12 Lead Stat 08/15/22 19:45 Complete Blood Count AUTO DIFF Stat Comprehensive Metabolic Panel Stat Lipase Stat Magnesium Stat PTT Partial Thromboplastin Ean Stat Prothrombin Time INR Stat Acetaminophen (Acetaminophen 325 Mg Tablet) 650 mg PO Q6H PRN PRN Reason: Fever/Mild Pain (1-3) Last Admin: 08/15/22 22:52 Dose: 650 mg Documented By: JOHN Al Hydrox/Mg Hydrox/Simethicone (Mag Hydrox/Alum/Simeth 30 Ml Udc) 30 ml PO Q6HR PRN PRN Reason: Dyspepsia Aspirin (Aspirin Ec 325 Mg Tablet) 325 mg PO DAILY [facility] Last Admin: 08/15/22 22:51 Dose: 325 mg Documented By: JOHN Atorvastatin Calcium (Atorvastatin 20 Mg Tablet) 20 mg PO BEDTIME [facility] Last Admin: 08/15/22 22:52 Dose: 20 mg Documented By: JOHN Calcium Carbonate (Calcium Carbonate 500 Mg Tab) 1,000 mg PO Q4HR PRN PRN Reason: Dyspepsia Celecoxib (Celecoxib 200 Mg Capsule) 200 mg PO BID [facility] Last Admin: 08/15/22 22:59 Dose: Not Given Documented By: LN Clopidogrel Bisulfate (Clopidogrel 75 Mg Tablet) 75 mg PO DAILY [facility] Last Admin: 08/15/22 22:52 Dose: 75 mg Documented By: JOHN Cyclobenzaprine HCl (Cyclobenzaprine 10 Mg Tablet) 10 mg PO BID PRN PRN Reason: muscle spasm Dextrose (Dextrose 50 % In Water 25 Gm/50 Ml Syringe) 25 gm IV PRN PRN PRN Reason: Hypoglycemia Enoxaparin Sodium (Enoxaparin 40 Mg/0.4 Ml Syringe) 40 mg SUBCUT DAILY [facility] Gabapentin (Gabapentin 300 Mg Capsule) 300 mg PO BEDTIME [facility] Last Admin: 08/15/22 22:59 Dose: Not Given Documented By: LN Insulin Human Lispro (Insulin Lispro 100 Unit/Ml 3ml Vial) 0 unit SUBCUT ACHS [facility]; Protocol Levothyroxine Sodium (Levothyroxine 125 Mcg Tablet) 125 mcg PO DAILY [facility] Metoprolol Succinate (Metoprolol Er 25 Mg Tablet) 25 mg PO QPM [facility] Naloxone HCl (Naloxone 0.4 Mg/Ml Vial) 0.2 mg IV Q2MIN PRN PRN Reason: Opiate Reversal Non-Formulary Medication (Trospium) 20 mg PO BID [facility] Last Admin: 08/15/22 22:59 Dose: Not Given Documented By: JOHN Ondansetron HCl (Ondansetron 4 Mg/2 Ml Inj) 4 mg IV Q8HR PRN PRN Reason: Nausea And Vomiting Sennosides (Sennosides 8.6 Mg Tablet) 17.2 mg PO BEDTIME [facility] Vital Signs Vital signs: Vital Signs - 8 hr 08/15/22 19:15 08/15/22 20:13 08/15/22 20:17 Pulse Rate 80 74 75 Respiratory Rate 18 25 H 22 Blood Pressure 175/84 H Pulse Oximetry 98 96 97 Oxygen Delivery Method Room Air 08/15/22 20:17 08/15/22 20:30 08/15/22 20:31 Pulse Rate 72 Respiratory Rate 26 H Blood Pressure 131/70 124/59 L Pulse Oximetry 96 Oxygen Delivery Method 08/15/22 20:31 08/15/22 21:00 08/15/22 21:00 Pulse Rate 74 71 Respiratory Rate 27 H 21 Blood Pressure 111/59 L Pulse Oximetry 96 95 Oxygen Delivery Method Room Air MDM - Neuro Symptoms/Deficit Lab Data Attestation: I reviewed the patient's lab results. 08/15/22 19:45 08/15/22 19:45 Labs: Lab Results 08/15/22 08/15/22 08/15/22 Range/Units 16:45 19:45 19:45 WBC 9.0 (4.5-11.0) X10^3/uL RBC 5.02 (4.0-5.2) X10^6/uL Hgb 15.2 (12.0-16.0) g/dL Hct 44.1 (36-46) % MCV 87.8 (80-100) fL MCH 30.2 (26-34) PG MCHC 34.4 (30-36) % RDW 13.4 (11.6-14.8) % Plt Count 208 (150-400) X10^3/uL Neut % (Auto) 60.3 (50-75) % Lymph % (Auto) 27.5 (25-40) % [place] % (Auto) 10.3 (3-14) % Eos % (Auto) 1.2 L (2-4) % Baso % (Auto) 0.7 (0-2) % Neut # (Auto) 5500 (9077-0205) /uL Lymph # (Auto) 2500 (3649-2016) /uL [place] # (Auto) 900 (0-900) /uL Eos # (Auto) 100 (0-450) /uL Baso # (Auto) 100 (0-100) /uL PT 11.2 (10.1-12.7) SECONDS INR 1.0 (0.9-1.3) APTT 35 (26-36) SECONDS Sodium (137-145) mmol/L Potassium (3.4-5.1) mmol/L Chloride (98-107) mmol/L Carbon Dioxide (22-32) mmol/L BUN (7-17) mg/dL Creatinine (0.52-1.04) mg/dL Estimated GFR (>60) mL/min BUN/Creatinine Ratio (6-22) Glucose (80-110) mg/dL Calcium (8.4-10.2) mg/dL Magnesium (1.6-2.3) mg/dL Total Bilirubin (0.2-1.3) mg/dL AST (14-36) IU/L ALT (<35) IU/L Alkaline Phosphatase (38-126) U/L NT-Pro-B Natriuret Pep 434 (<450) pg/mL Total Protein (6.3-8.2) g/dL Albumin (3.5-5.0) g/dL Globulin (1.7-4.1) g/dL Albumin/Globulin Ratio (1.0-2.8) Lipase (23-300) U/L TSH (0.47-4.68) uIU/mL 08/15/22 08/15/22 Range/Units 19:45 19:45 WBC (4.5-11.0) X10^3/uL RBC (4.0-5.2) X10^6/uL Hgb (12.0-16.0) g/dL Hct (36-46) % MCV (80-100) fL MCH (26-34) PG MCHC (30-36) % RDW (11.6-14.8) % Plt Count (150-400) X10^3/uL Neut % (Auto) (50-75) % Lymph % (Auto) (25-40) % [place] % (Auto) (3-14) % Eos % (Auto) (2-4) % Baso % (Auto) (0-2) % Neut # (Auto) (9993-6424) /uL Lymph # (Auto) (9879-6531) /uL [place] # (Auto) (0-900) /uL Eos # (Auto) (0-450) /uL Baso # (Auto) (0-100) /uL PT (10.1-12.7) SECONDS INR (0.9-1.3) APTT (26-36) SECONDS Sodium 139 (137-145) mmol/L Potassium 3.8 (3.4-5.1) mmol/L Chloride 104 (98-107) mmol/L Carbon Dioxide 26 (22-32) mmol/L BUN 17 (7-17) mg/dL Creatinine 0.78 (0.52-1.04) mg/dL Estimated GFR > 60 (>60) mL/min BUN/Creatinine Ratio 21.8 (6-22) Glucose 117 H (80-110) mg/dL Calcium 9.7 (8.4-10.2) mg/dL Magnesium 2.0 (1.6-2.3) mg/dL Total Bilirubin 0.4 (0.2-1.3) mg/dL AST 27 (14-36) IU/L ALT 26 (<35) IU/L Alkaline Phosphatase 82 (38-126) U/L NT-Pro-B Natriuret Pep (<450) pg/mL Total Protein 7.8 (6.3-8.2) g/dL Albumin 4.7 (3.5-5.0) g/dL Globulin 3.1 (1.7-4.1) g/dL Albumin/Globulin Ratio 1.5 (1.0-2.8) Lipase 66 (23-300) U/L TSH 4.08 (0.47-4.68) uIU/mL Imaging Data CT scan - head: Radiologist's Impression: PROCEDURE:? CT HEAD/BRAIN WO CON ? INDICATIONS:? TIA ? TECHNIQUE:? Noncontrast 4.5 mm thick angled axial sections acquired from the foramen magnum to the vertex, with coronal and sagittal reformats.? For radiation dose reduction, the following was used:? automated exposure control, adjustment of mA and/or kV according to patient size.? ? COMPARISON:? [facility], CT, CT ANGIO HEAD AND NECK, 08/15/2022, 19:49. ? FINDINGS:? Image quality:? Excellent.? ? CSF spaces:? Basal cisterns are patent.? No extra-axial fluid collections.? Ventricles are normal in size and shape.? ? Brain:? No intracranial hemorrhage, mass, or mass effect.? [place]-white matter in terface appears preserved.? ? Skull and face:? Calvarium and visualized facial bones appear intact, without suspicious lesions.? ? Sinuses:? Visualized sinuses and mastoids are clear.? ? IMPRESSION:? ? 1. No acute intracranial abnormality.? CTA - brain/neck: Radiologist's Impression: PROCEDURE:? CT ANGIO HEAD AND NECK ? INDICATIONS:? TIA ? TECHNIQUE:? After the administration of intravenous contrast, 1 mm thick sections acquired f rom the aortic arch through the [place].? Post-contrast 4.5 mm thick sections then re-acquired from the foramen magnum to the vertex.? 3-dimensional godibii-aovivaluf-czgwzgrvbj (MIP) and/or volume rendering reformats were acquired of the central intracranial vasculature and neck separately. For radiation dose reduction, the following was used:? automated exposure control, adjustment of mA and/or kV according to patient size.? ? COMPARISON:? [facility], CT, CT HEAD/BRAIN WO CON, 08/15/2022, 19:49. ? FINDINGS:? Image quality:? Excellent.? ? BRAIN:? CSF spaces:? Basal cisterns are patent.? No extra-axial fluid collections.? Ventricles are normal in size and shape.? ? Brain:? No intracranial hemorrhage, mass, or mass effect.? [place]-white matter interface appears preserved.? No abnormal intracranial enhancement.? ? Skull and face:? Calvarium and facial bones appear intact, without suspicious lesions.? Orbits appear normal.? ? Sinuses:? Sinuses and mastoids are clear.? ? HEAD CT ANGIOGRAPHY:? Anterior circulation:? Intracranial internal carotid arteries are normal in size and appear patent bilaterally.? There is mild atherosclerotic calcification along the cavernous segments of the internal carotid arteries.? The paired anterior cerebral arteries appear patent bilaterally.? The anterior communicating artery also appears patent. The middle cerebral arteries appear patent bilaterally.? No high-grade stenosis, occlusion, or filling defects.? No cerebral aneurysms identified. ? Posterior circulation:? Visualized portions of the vertebral arteries demonstrate normal caliber, and join to form a patent basilar artery.? The posterior cerebral arteries appears patent bilaterally.? No high-grade stenosis, occlusion, or filling defects.? No cerebral aneurysms identified. ? NECK CT ANGIOGRAPHY:? Carotid system:? The great vessels demonstrate a conventional anatomy as they arise from the aortic arch.? The origins of the common carotid arteries appear patent.? The common carotid arteries demonstrate normal caliber and courses.? There is mild calcified plaque in the right carotid bulb with minimal narrowing of less than 25%.? The left carotid bulb appears widely patent.? The internal carotid arteries demonstrate normal calibers and courses.? ? Posterior circulation:? The origins of the vertebral arteries both appear patent.? The more superior extracranial portions of both vertebral arteries also demonstrate normal courses and calibers.? They join to form a patent basilar artery.? ? Soft tissues:? Visualized neck soft tissues demonstrate no suspicious abnormalities.? ? Bones:? No suspicious bony lesions.? Visualized cervical spine demonstrates straightening of the cervical lordosis.? There are postsurgical changes consistent with prior ACDF at C4 through C7.? Surgical hardware appears intact.? There is multilevel degenerative disc disease and facet joint arthropathy.? ? ? IMPRESSION:? ? 1. No high-grade stenosis or occlusion of the central intracranial arteries. ? 2. No high-grade stenosis or occlusion of the head and neck arteries. ? Any quantitative measurements of stenosis were performed using NASCET criteria.? ECG Data Interpretation: Sinus rhythm ventricular rate is 76 First-degree AV block SD interval 252 milliseconds Normal axis Nonspecific ST T wave changes MDM Narrative Medical decision making narrative: History and physical exam today are consistent with a TIA. Has a NIH score of 0. Initially hypertensive upon arrival but this improved without specific intervention here in the ER. Head CT and CTA is unremarkable. EKG is unremarkable. Has a ABCD2 score of 4. Secondary to her presentation we will admit to the hospital for further evaluation of her presumed TIA. Discussed the case with LAKEISHA Ricks the night hospitalist who will admit. Discussed the need for admission with the patient. She expressed understanding and agreement as well. Discharge Plan Departure Patient Disposition: Admitted as Observation Clinical Impression: Brain TIA Admit Date/Time: 08/15/22 21:21 Admit Provider: Sonya Ricks
--- NOTE | 2022-08-15 19:32 | DI.CT.S_ITS ---
PROCEDURE: CT HEAD/BRAIN WO CON INDICATIONS: TIA TECHNIQUE: Noncontrast 4.5 mm thick angled axial sections acquired from the foramen magnum to the vertex, with coronal and sagittal reformats. For radiation dose reduction, the following was used: automated exposure control, adjustment of mA and/or kV according to patient size. COMPARISON: [facility], CT, CT ANGIO HEAD AND NECK, 08/15/2022, 19:49. FINDINGS: Image quality: Excellent. CSF spaces: Basal cisterns are patent. No extra-axial fluid collections. Ventricles are normal in size and shape. Brain: No intracranial hemorrhage, mass, or mass effect. [place]-white matter interface appears preserved. Skull and face: Calvarium and visualized facial bones appear intact, without suspicious lesions. Sinuses: Visualized sinuses and mastoids are clear. IMPRESSION: 1. No acute intracranial abnormality. Dictated by: David Ramirez M.D. on 08/15/2022 at 20:33 Approved by: David Ramirez M.D. on 08/15/2022 at 20:34
--- NOTE | 2022-08-15 19:32 | DI.CT.S_ITS ---
PROCEDURE: CT ANGIO HEAD AND NECK INDICATIONS: TIA TECHNIQUE: After the administration of intravenous contrast, 1 mm thick sections acquired from the aortic arch through the [place]. Post-contrast 4.5 mm thick sections then re-acquired from the foramen magnum to the vertex. 3-dimensional skdsvjc-drfhxnset-erhjlpbuvt (MIP) and/or volume rendering reformats were acquired of the central intracranial vasculature and neck separately. For radiation dose reduction, the following was used: automated exposure control, adjustment of mA and/or kV according to patient size. COMPARISON: [facility], CT, CT HEAD/BRAIN WO CON, 08/15/2022, 19:49. FINDINGS: Image quality: Excellent. BRAIN: CSF spaces: Basal cisterns are patent. No extra-axial fluid collections. Ventricles are normal in size and shape. Brain: No intracranial hemorrhage, mass, or mass effect. [place]-white matter interface appears preserved. No abnormal intracranial enhancement. Skull and face: Calvarium and facial bones appear intact, without suspicious lesions. Orbits appear normal. Sinuses: Sinuses and mastoids are clear. HEAD CT ANGIOGRAPHY: Anterior circulation: Intracranial internal carotid arteries are normal in size and appear patent bilaterally. There is mild atherosclerotic calcification along the cavernous segments of the internal carotid arteries. The paired anterior cerebral arteries appear patent bilaterally. The anterior communicating artery also appears patent. The middle cerebral arteries appear patent bilaterally. No high-grade stenosis, occlusion, or filling defects. No cerebral aneurysms identified. Posterior circulation: Visualized portions of the vertebral arteries demonstrate normal caliber, and join to form a patent basilar artery. The posterior cerebral arteries appears patent bilaterally. No high-grade stenosis, occlusion, or filling defects. No cerebral aneurysms identified. NECK CT ANGIOGRAPHY: Carotid system: The great vessels demonstrate a conventional anatomy as they arise from the aortic arch. The origins of the common carotid arteries appear patent. The common carotid arteries demonstrate normal caliber and courses. There is mild calcified plaque in the right carotid bulb with minimal narrowing of less than 25%. The left carotid bulb appears widely patent. The internal carotid arteries demonstrate normal calibers and courses. Posterior circulation: The origins of the vertebral arteries both appear patent. The more superior extracranial portions of both vertebral arteries also demonstrate normal courses and calibers. They join to form a patent basilar artery. Soft tissues: Visualized neck soft tissues demonstrate no suspicious abnormalities. Bones: No suspicious bony lesions. Visualized cervical spine demonstrates straightening of the cervical lordosis. There are postsurgical changes consistent with prior ACDF at C4 through C7. Surgical hardware appears intact. There is multilevel degenerative disc disease and facet joint arthropathy. IMPRESSION: 1. No high-grade stenosis or occlusion of the central intracranial arteries. 2. No high-grade stenosis or occlusion of the head and neck arteries. Any quantitative measurements of stenosis were performed using NASCET criteria. Dictated by: David Ramirez M.D. on 08/15/2022 at 20:34 Approved by: David Ramirez M.D. on 08/15/2022 at 20:38
--- NOTE | 2022-08-15 19:49 | PC.NURSE ---
Pt reports at 1830, had difficulty speaking words for about 1 minute. Pt reports she knew what she wanted to say but wasn't able to speak the words.
[2022-08-15 19:55] LABS: Add Manual Diff / Slide Review NO; Basophils Absolute Auto 100 /uL (0-100); Basophils Percent Auto 0.7 % (0-2); Eosinophils Absolute Auto 100 /uL (0-450); Eosinophils Percent Auto 1.2 % (2-4); Hematocrit 44.1 % (36-46); Hemoglobin 15.2 g/dL (12.0-16.0); Lymphocytes Absolute Auto 2500 /uL (1100-4500); Lymphocytes Percent Auto 27.5 % (25-40); Mean Corpuscular HGB Conc 34.4 % (30-36); Mean Corpuscular Hemoglobin 30.2 PG (26-34); Mean Corpuscular Volume 87.8 fL (80-100); Monocytes Absolute Auto 900 /uL (0-900); Monocytes Percent Auto 10.3 % (3-14); Neutrophils Absolute Auto 5500 /uL (1500-7000); Neutrophils Percent Auto 60.3 % (50-75); Platelet Count 208 X10^3/uL (150-400); Red Blood Cell Count 5.02 X10^6/uL (4.0-5.2); Red Cell Distribution Width 13.4 % (11.6-14.8)
[2022-08-15 19:59] LABS: Prothrombin Time 11.2 SECONDS (10.1-12.7)
[2022-08-15 20:02] LABS: PTT Partial Thromboplastin Tim 35 SECONDS (26-36)
[2022-08-15 20:11] LABS: Alanine Aminotransferase 26 IU/L (<35); Albumin 4.7 g/dL (3.5-5.0); Albumin Globulin Ratio 1.5 (1.0-2.8); Alkaline Phosphatase 82 U/L (38-126); Aspartate Aminotransferase 27 IU/L (14-36); BUN Creatinine Ratio 21.8 (6-22); Bilirubin Total 0.4 mg/dL (0.2-1.3); Blood Urea Nitrogen 17 mg/dL (7-17); Calcium 9.7 mg/dL (8.4-10.2); Carbon Dioxide 26 mmol/L (22-32); Chloride 104 mmol/L (98-107); Estimated Glomerular Filt Rate > 60 mL/min (>60); Globulin 3.1 g/dL (1.7-4.1); Glucose 117 mg/dL (80-110); HEMOLYSIS < 15 (0-50); Lipase 66 U/L (23-300); Potassium 3.8 mmol/L (3.4-5.1); Sodium 139 mmol/L (137-145); Total Protein 7.8 g/dL (6.3-8.2)
--- NOTE | 2022-08-15 21:27 | DI.MRI.S_ITS ---
PROCEDURE: MR HEAD/BRAIN WO CON INDICATIONS: TIA TECHNIQUE: Non-contrast axial T1 spin echo, axial T2 fast spin echo, sagittal and axial FLAIR, coronal T2 fast spin echo, axial gradient echo, axial diffusion and ADC through the brain. COMPARISON: [facility], CT, CT ANGIO HEAD AND NECK, 08/15/2022, 19:49. FINDINGS: Image quality: Excellent. CSF spaces: Ventricles appear symmetric in size and shape. Basal cisterns are patent. No extra-axial fluid collections. Brain: No intracranial bleeds or mass effects. There is cerebral volume loss for age. There are periventricular and deep white matter chronic small vessel ischemic changes. Brainstem appears normal. Diffusion-weighted images show no acute ischemic insults. No chronic ischemic insults. Normal intravascular flow voids are present. Skull and face: Calvarial bone marrow is normal in signal. Orbits are normal. Sinuses: Sinuses and mastoids are clear. IMPRESSION: 1. No evidence of acute infarction. No intracranial bleed, midline shift or mass effect. 2. Age related volume loss and mild white matter chronic small vessel ischemic changes. Dictated by: Scar Bennett M.D. on 08/16/2022 at 9:12 Approved by: Scar Bennett M.D. on 08/16/2022 at 9:13
--- NOTE | 2022-08-15 21:40 | P.HP_ITS ---
History of Present Illness History of Present Illness Date Patient Seen: 08/15/22 Time Patient Seen: 21:40 Chief complaint: TIA Narrative: Candice Ayala is a 82 year female with a medical history of NIDDM, HLD, hypothyroidism, SARAH with CPAP, spondylolisthesis (L4-L5) and chronic LBP. Patient presented to the ED this evening after suffering approximately a 1 min amelie episode while sitting in a recliner at home at rest turned to her spouse and had difficulty speaking (kept repeating words over & over again/wrod salad) with a slight headache that she had for 3 days prior with pain above right eye. In the ED patient presented asymptomatic with mild hypertension systolic 175, NIH: 0, ABCD2 score: 4 -moderate risk. Patient's sister has had multiple CVAs with residual deficit. Last echo 08/2021 normal EF 60-65%. On admit patient denies chest pain, shortness in breath, headache, changes in vision, difficulty swallowing, speech impairment, weakness, numbness, tingling, difficulty with ambulation, recent falls, head injury, LOC, fever, body aches, chills, cough, recent exposure to illness, abdominal pain, nausea, vomiting, urinary incontinence/retention, dysuria, frequency, urgency, hematuria, bowel changes, constipation, incontinence, melena, rashes, recent changes to medication, illness, injury, or trauma. At the time of admit vital signs are stable and labs are reassuringly normal, BP 124/59, 74, 27, 96% on room air. NIH:0, I personally reviewed all imaging and EKG: Head CT, and head neck CTA were negative. EKG NSR rate of 76 first-degree AV block, nonspecific intraventricular block T-wave abnormality similar to 07/10/2022 EKG. Patient was scheduled to go to the OR tomorrow check-in at 6:00 a.m. for spinal surgery with Dr. Bennett. Admitted for TIA risk stratification [facility] Medical History Anesthesia complication History of COVID-19 (10/2021) Hyperparathyroidism Hypothyroidism SARAH on CPAP RBBB (right bundle branch block) Seasonal allergies Surgical History History of hysterectomy History of lumbar spinal fusion (04/2015) History of parathyroidectomy (08/14/16) Hx laparoscopic cholecystectomy (06/24/18) Hx of bilateral cataract extraction Hx of colonoscopy (11/2012) Hx of fusion of cervical spine (2015) S/P epidural steroid injection Family History (Updated 08/15/22 @ 22:44 by Sonya Ricks [facility]) Father Heart attack Mother History of nephrectomy Sister History of multiple cerebrovascular accidents (CVAs) Social History household members: spouse Smoking Status: Former smoker alcohol intake: current Meds Home Medications and Allergies Home Medications Medication Instructions Recorded Confirmed Type metoprolol succinate 25 mg 25 mg PO QPM ##0 03/08/16 08/10/22 History tablet,extended release 24 hr (Toprol XL) cyclobenzaprine 10 mg tablet 5 - 10 mg PO BID PRN muscle spasm 12/01/18 08/10/22 Rx #7 tabs gabapentin 300 mg capsule 300 mg PO BEDTIME #14 caps 05/02/20 08/10/22 Rx acetaminophen 500 mg tablet 500 mg PO TID-QID 08/10/22 08/10/22 History aspirin 81 mg capsule 81 mg PO DAILY 08/10/22 08/10/22 History celecoxib 200 mg capsule 200 mg PO BID 08/10/22 08/10/22 History doxycycline hyclate 100 mg tablet 100 mg PO Q OTHER DAY Chronic UTI 08/10/22 08/10/22 History levothyroxine 125 mcg tablet 125 mcg PO DAILY 08/10/22 08/10/22 History metformin 500 mg tablet 500 mg PO DAILY Pre-diabetes 08/10/22 08/10/22 History rosuvastatin 5 mg tablet 5 mg PO QPM 08/10/22 08/10/22 History trospium 20 mg tablet 20 mg PO BID 08/10/22 08/10/22 History vit C 250 mg-vit E 90 mg-zinc 40 1 tab PO BID 08/10/22 08/10/22 History mg-copper 1 [id number] capsule (PreserVision AREDS-2) Allergies Allergy/AdvReac Type Severity Reaction Status Date / Time metronidazole Allergy Severe Hives Verified 05/02/20 17:27 Penicillins [PENICILLINS] Allergy Unknown Pt does Verified 08/10/22 10:14 not recall reaction tizanidine [TIZANIDINE] Allergy Unknown Pt does Verified 08/10/22 10:14 not recall reaction Review of Systems Review of Systems Narrative: All 12 point systems reviewed with the patient and are negative except otherwise documented. Exam Vital Signs (past 8 hours): - 08/15/22 19:15 08/15/22 20:13 08/15/22 20:17 Pulse Rate 80 74 75 Respiratory Rate 18 25 H 22 Blood Pressure 175/84 H Pulse Oximetry 98 96 97 Oxygen Delivery Method Room Air 08/15/22 20:17 08/15/22 20:30 08/15/22 20:31 Pulse Rate 72 Respiratory Rate 26 H Blood Pressure 131/70 124/59 L Pulse Oximetry 96 Oxygen Delivery Method 08/15/22 20:31 08/15/22 21:00 08/15/22 21:00 Pulse Rate 74 71 Respiratory Rate 27 H 21 Blood Pressure 111/59 L Pulse Oximetry 96 95 Oxygen Delivery Method Room Air 08/15/22 21:30 Pulse Rate 74 Respiratory Rate 26 H Blood Pressure Pulse Oximetry 96 Oxygen Delivery Method Oxygen Delivery Method Room Air Narrative Exam Narrative: General: Patient is a well-developed, well-nourished in no distress at this time. HEENT: Normocephalic, atraumatic, extraocular muscles intact, oral pharynx is clear and mucous membranes are moist. Neck is supple and symmetric, trachea is midline, no adenopathy, no thyroid enlargement, nontender, no masses palpated. Negative for JVD Chest: Normal AP diameter and contour without kyphoscoliosis, Equal chest rise without nasal flaring, retractions, tachypneic or labored breathing. Lungs: Auscultation of all lung gary are clear without adventitious sounds, wheezes, rhonchi, or rales. Cardio: regular rate and rhythm without murmur, rubs, or gallops, no carotid bruit, no cardiac pulsations present. Abdomen: Soft nontender, negative for organomegaly, or masses. Bowel sounds are present in all 4 quadrants without guarding or rebound, no CVA tenderness. Musculoskeletal: Muscle strength and tone are equal, no deformity, crepitus, effusions, cyanosis, clubbing or edema present. Full range of motion intact radial and pedal pulses are normal. Skin: Warm dry and intact without rashes, ulcerations or petechiae. Neuro: Alert and orientated x3, moves all extremities, sensation to touch int act, no gross deficits noted of cranial nerves. NIH:0 Psych: Patient has a well-kept appearance, appropriate affect, mental status attitude thought context and judgment are appropriate for age. Objective Labs 08/15/22 19:45 08/15/22 19:45 Labs: Laboratory Results - last 24 hr 08/15/22 08/15/22 08/15/22 19:45 19:45 19:45 WBC 9.0 RBC 5.02 Hgb 15.2 Hct 44.1 MCV 87.8 MCH 30.2 MCHC 34.4 RDW 13.4 Plt Count 208 Neut % (Auto) 60.3 Lymph % (Auto) 27.5 [place] % (Auto) 10.3 Eos % (Auto) 1.2 L Baso % (Auto) 0.7 Neut # (Auto) 5500 Lymph # (Auto) 2500 [place] # (Auto) 900 Eos # (Auto) 100 Baso # (Auto) 100 PT 11.2 INR 1.0 APTT 35 Sodium 139 Potassium 3.8 Chloride 104 Carbon Dioxide 26 BUN 17 Creatinine 0.78 Estimated GFR > 60 BUN/Creatinine Ratio 21.8 Glucose 117 H Calcium 9.7 Magnesium 2.0 Total Bilirubin 0.4 AST 27 ALT 26 Alkaline Phosphatase 82 Total Protein 7.8 Albumin 4.7 Globulin 3.1 Albumin/Globulin Ratio 1.5 Lipase 66 Assessment & Plan Assessment & Plan narrative: Candice Ayala is a 82 year female with a medical history of NIDDM, HLD, h ypothyroidism, SARAH with CPAP, spondylolisthesis (L4-L5) and chronic LBP. Admitted for TIA risk stratification. Patient is scheduled to go to the OR tomorrow with Dr. Bennett for spinal surgery TIA, acute, (speech difficulty), present on admission * NIH: 0, ABCD2 score: 4 * Plavix, ASA, Lipitor * Ordered A1c, lipids, BNP * Brain MR an echo tomorrow Spondylosis, L4/L5, with chronic LBP, acute on chronic, present on admission * Patient is scheduled to go to the OR tomorrow Dr. Bennett for spinal surgery-6:00 a.m. checking time * Will have patient's nurse contact the OR at 6:00 a.m. to notify them of the [facility] stay. * While I believe it is unlikely the patient will be taken to the OR tomorrow pending echo/MR. Will make patient NPO at midnight. * Continue Celebrex, Flexeril, gabapentin NIDDM, chronic, with HLD, chronic, present on admission * Ordered A1c, lipids * Admitted under diabetic protocol * BS- a.c. HS * Hold metformin, cover with low-dose sliding scale * Hold simvastatin in place Lipitor Hypothyroidism, acquired, chronic, present on admission * Continue levothyroxine * TSH/T4 ordered SARAH with CPAP, chronic, present on admission * Respiratory consult for CPAP Urinary retention, chronic, present on admission * Continue trospium Obesity, moderate, acute on chronic, present on admission * BMI 34.9 * dietary consult ordered regarding nutritional education and information for dietary, lifestyle, exercise, and weight changes. * the patient is at much higher risk for medical and surgical complications due to obesity as it relates to chronic illnesses:, and acute illness. The patie nt's obesity increases the difficulty and complexity of medical and/or surgical interventions, management and increases the chances of poor outcome such as morbidity and mortality as well as impaired wound healing. Code status: Full Surrogate decision maker: Jose Cherokee- Spouse DVT/VTE prophylaxis: Lovenox & SCD's Disposition: Patient admitted for observation, risk stratification with echo and brain MR for TIA expected length of stay not to exceed 2 midnights. I have utilized all available immediate resources to obtain, update, or review the patient's current medications. I confirmed that the patient's advanced care plan is present, Code status is documented and/or surrogate decision maker is listed in the patient's medical record. I have personally reviewed patient's chart notes from PCP, specialists, diagnostic imaging, and laboratory results.
[2022-08-15 22:14] LABS: NT-proBNP (BNP-Adult 18+) 434 pg/mL (<450)
[2022-08-15 22:49] LABS: TSH w/ Reflex to FT4 4.08 uIU/mL (0.47-4.68)
[2022-08-15] MEDS: ASPIRIN EC 325 MG TABLET PO (22:51)
[2022-08-15] MEDS: ACETAMINOPHEN 325 MG TABLET 650 MG PO (22:52)
[2022-08-15] MEDS: ATORVASTATIN 20 MG TABLET PO (22:52)
[2022-08-15] MEDS: CLOPIDOGREL 75 MG TABLET PO (22:52)
[2022-08-16 01:28] VITALS: BP 135/61; PULSE 61; RESP 18; TEMP 36.3; O2SAT 94
[2022-08-16 05:05] LABS: Add Manual Diff / Slide Review NO; Basophils Absolute Auto 0 /uL (0-100); Basophils Percent Auto 0.6 % (0-2); Eosinophils Absolute Auto 100 /uL (0-450); Eosinophils Percent Auto 1.5 % (2-4); Hematocrit 40.9 % (36-46); Hemoglobin 13.7 g/dL (12.0-16.0); Lymphocytes Absolute Auto 2400 /uL (1100-4500); Lymphocytes Percent Auto 33.8 % (25-40); Mean Corpuscular HGB Conc 33.6 % (30-36); Mean Corpuscular Hemoglobin 29.5 PG (26-34); Mean Corpuscular Volume 87.8 fL (80-100); Monocytes Absolute Auto 700 /uL (0-900); Monocytes Percent Auto 10.5 % (3-14); Neutrophils Absolute Auto 3800 /uL (1500-7000); Neutrophils Percent Auto 53.6 % (50-75); Platelet Count 186 X10^3/uL (150-400); Red Blood Cell Count 4.66 X10^6/uL (4.0-5.2); Red Cell Distribution Width 13.3 % (11.6-14.8)
[2022-08-16 05:10] LABS: Blood Urea Nitrogen 15 mg/dL (7-17); Carbon Dioxide 27 mmol/L (22-32); Chloride 105 mmol/L (98-107); Cholesterol 143 mg/dL (140-199); Estimated Glomerular Filt Rate > 60 mL/min (>60); Glucose 108 mg/dL (80-110); HDL Cholesterol 44 mg/dL (40-60); HEMOLYSIS < 15 (0-50); LDL Cholesterol Calculated 60 mg/dL (<100); Sodium 138 mmol/L (137-145); Triglycerides 195 mg/dL (35-150)
[2022-08-16 05:34] VITALS: BP 152/75; PULSE 65; RESP 18; TEMP 36.1; O2SAT 97
[2022-08-16 08:16] VITALS: BP 174/79; PULSE 65; RESP 16; TEMP 36.3; O2SAT 96
[2022-08-16] MEDS: CELECOXIB 200 MG CAPSULE PO (08:17)
[2022-08-16] MEDS: CYCLOBENZAPRINE 10 MG TABLET PO (08:17)
[2022-08-16] MEDS: ASPIRIN EC 325 MG TABLET PO (08:17)
[2022-08-16] MEDS: LEVOTHYROXINE 125 MCG TABLET PO (08:17)
[2022-08-16] MEDS: CLOPIDOGREL 75 MG TABLET PO (08:17)
[2022-08-16] MEDS: ENOXAPARIN 40 MG/0.4 ML SYRINGE SUBCUT (08:18)
[2022-08-16] MEDS: ACETAMINOPHEN 325 MG TABLET 650 MG PO (08:18)
--- NOTE | 2022-08-16 10:28 | PM.DS.1 ---
History of Present Illness History of Present Illness Date Patient Seen: 08/16/22 Time Patient Seen: 10:28 Chief complaint: TIA Narrative: Per admitting provider, Candice Ayala is a 82 year female with a medical history of NIDDM, HLD, hypothyroidism, SARAH with CPAP, spondylolisthesis (L4-L5) and chronic LBP. Patient presented to the ED this evening after suffering approximately a 1 minute episode while sitting in a recliner at home at rest turned to her spouse and had difficulty speaking (kept repeating words over & over again/wrod salad) with a slight headache that she had for 3 days prior with pain above right eye. In the ED patient presented asymptomatic with mild hypertension systolic 175, NIH: 0, ABCD2 score: 4 -moderate risk. Patient's sister has had multiple CVAs with residual deficit. Last echo 08/2021 normal EF 60-65%. On admit patient denies chest pain, shortness in breath, headache, changes in vision, difficulty swallowing, speech impairment, weakness, numbness, tingling, difficulty with ambulation, recent falls, head injury, LOC, fever, body aches, chills, cough, recent exposure to illness, abdominal pain, nausea, vomiting, urinary incontinence/retention, dysuria, frequency, urgency, hematuria, bowel changes, constipation, incontinence, melena, rashes, recent changes to medication, illness, injury, or trauma. At the time of admit vital signs are stable and labs are reassuringly normal, BP 124/59, 74, 27, 96% on room air. NIH:0, I personally reviewed all imaging and EKG: Head CT, and head neck CTA were negative. EKG NSR rate of 76 first-degree AV block, nonspecific intraventricular block T-wave abnormality similar to 07/10/2022 EKG. Patient was scheduled to go to the OR tomorrow check-in at 6:00 a.m. for spinal surgery with Dr. Bennett. Admitted for TIA risk stratification Discharge Providers Provider Date of admission: 08/15/22 21:21 Discharge Date: 08/17/22 Primary care physician: Martha Aldana MD Consults: 08/15/22 21:32 Consult to Occupational Therapy Evaluate & Treat Comment: Physician Instructions: Evaluate and treat Consult to Physical Therapy Evaluate & Treat Comment: Physician Instructions: Evaluate and Treat 08/15/22 21:37 Consult to Dietitian, Adult Routine Comment: Reason For Exam: BMI 32.9, DM, TIA 08/15/22 21:38 Consult to Discharge Planning Routine Comment: Discharge provider: Garrison Rodrigues DO Summary Hospital Course Discharge Diagnosis: TIA, acute, (speech difficulty), present on admission Spondylosis, L4/L5, with chronic LBP, acute on chronic, present on admission NIDDM, chronic, with HLD, chronic, present on admission Hypothyroidism, acquired, chronic, present on admission SARAH with CPAP, chronic, present on admission Urinary retention, chronic, present on admission Obesity, moderate, acute on chronic, present on admission Hospital Course: Candice Ayala is a 82 year female with a medical history of NIDDM, HLD, hypothyroidism, SARAH with CPAP, spondylolisthesis (L4-L5) and chronic LBP.? Patient presented to the ED after suffering approximately a 1 minute episode while sitting in a recliner at home at rest turned to her spouse and had difficulty speaking (kept repeating words over & over again/wrod salad) with a slight headache that she had for 3 days prior with pain above right eye. MRI was negative for acute infarction and patient had no events on telemetry nor recurrence of symptoms. She was treated as a TIA, discharged home on aspirin and increase in her rosuvastatin to high intensity dosing at 20 mg. No other medication changes are recommended. She was counseled that typically the recommendation is to wait at least 3 months, but preferrably 6-9 months prior to surgical interventions after TIA or stroke. PCP follow up is recommended in the next 2-4 weeks to address TIA and review possible further evaluations which can include holter monitor, though arrythmia is not suspected at this time. Time Spent with Patient Time spent: Greater than 30 minutes Exam Vital Signs (past 8 hours): - 08/16/22 05:34 08/16/22 08:16 08/16/22 08:43 Temperature 97.0 F L 97.3 F L Pulse Rate 65 65 Respiratory Rate 18 16 Blood Pressure 152/75 H 174/79 H Pulse Oximetry 97 96 Oxygen Delivery Method Room Air Oxygen Flow Rate 0 0 Oxygen Delivery Method Room Air Oxygen Flow Rate 0 Narrative Exam Narrative: General: Patient is a well-developed, well-nourished in no distress at this time. HEENT: Normocephalic, atraumatic, extraocular muscles intact, oral pharynx is clear and mucous membranes are moist. Neck is supple and symmetric, trachea is midline, no adenopathy, no thyroid enlargement, nontender, no masses palpated. Negative for JVD Chest: Normal AP diameter and contour without kyphoscoliosis, Equal chest rise without nasal flaring, retractions, tachypneic or labored breathing. Lungs: Auscultation of all lung gary are clear without adventitious sounds, wheezes, rhonchi, or rales. Cardio: regular rate and rhythm without murmur, rubs, or gallops, no carotid bruit, no cardiac pulsations present. Abdomen: Soft nontender, negative for organomegaly, or masses. Bowel sounds are present in all 4 quadrants without guarding or rebound, no CVA tenderness. Musculoskeletal: Muscle strength and tone are equal, no deformity, crepitus, effusions, cyanosis, clubbing or edema present. Full range of motion intact radial and pedal pulses are normal. Skin: Warm dry and intact without rashes, ulcerations or petechiae. Neuro: Alert and orientated x3, moves all extremities, sensation to touch intact, no gross deficits noted of cranial nerves. NIH:0 Psych: Patient has a well-kept appearance, appropriate affect, mental status attitude thought context and judgment are appropriate for age. Objective Labs 08/16/22 04:45 08/16/22 04:45 Labs: Laboratory Results - last 24 hr 08/15/22 08/15/22 08/15/22 16:45 19:45 19:45 WBC 9.0 RBC 5.02 Hgb 15.2 Hct 44.1 MCV 87.8 MCH 30.2 MCHC 34.4 RDW 13.4 Plt Count 208 Neut % (Auto) 60.3 Lymph % (Auto) 27.5 [place] % (Auto) 10.3 Eos % (Auto) 1.2 L Baso % (Auto) 0.7 Neut # (Auto) 5500 Lymph # (Auto) 2500 [place] # (Auto) 900 Eos # (Auto) 100 Baso # (Auto) 100 PT 11.2 INR 1.0 APTT 35 Sodium Potassium Chloride Carbon Dioxide BUN Creatinine Estimated GFR BUN/Creatinine Ratio Glucose Calcium Magnesium Total Bilirubin AST ALT Alkaline Phosphatase NT-Pro-B Natriuret Pep 434 Total Protein Albumin Globulin Albumin/Globulin Ratio Triglycerides Cholesterol LDL Cholesterol, Calc HDL Cholesterol Lipase TSH 08/15/22 08/15/22 08/16/22 19:45 19:45 04:45 WBC 7.0 RBC 4.66 Hgb 13.7 Hct 40.9 MCV 87.8 MCH 29.5 MCHC 33.6 RDW 13.3 Plt Count 186 Neut % (Auto) 53.6 Lymph % (Auto) 33.8 [place] % (Auto) 10.5 Eos % (Auto) 1.5 L Baso % (Auto) 0.6 Neut # (Auto) 3800 Lymph # (Auto) 2400 [place] # (Auto) 700 Eos # (Auto) 100 Baso # (Auto) 0 PT INR APTT Sodium 139 Potassium 3.8 Chloride 104 Carbon Dioxide 26 BUN 17 Creatinine 0.78 Estimated GFR > 60 BUN/Creatinine Ratio 21.8 Glucose 117 H Calcium 9.7 Magnesium 2.0 Total Bilirubin 0.4 AST 27 ALT 26 Alkaline Phosphatase 82 NT-Pro-B Natriuret Pep Total Protein 7.8 Albumin 4.7 Globulin 3.1 Albumin/Globulin Ratio 1.5 Triglycerides Cholesterol LDL Cholesterol, Calc HDL Cholesterol Lipase 66 TSH 4.08 08/16/22 04:45 WBC RBC Hgb Hct MCV MCH MCHC RDW Plt Count Neut % (Auto) Lymph % (Auto) [place] % (Auto) Eos % (Auto) Baso % (Auto) Neut # (Auto) Lymph # (Auto) [place] # (Auto) Eos # (Auto) Baso # (Auto) PT INR APTT Sodium 138 Potassium 4.0 Chloride 105 Carbon Dioxide 27 BUN 15 Creatinine 0.60 Estimated GFR > 60 BUN/Creatinine Ratio 25.0 H Glucose 108 Calcium 9.0 Magnesium Total Bilirubin AST ALT Alkaline Phosphatase NT-Pro-B Natriuret Pep Total Protein Albumin Globulin Albumin/Globulin Ratio Triglycerides 195 H Cholesterol 143 LDL Cholesterol, Calc 60 HDL Cholesterol 44 Lipase TSH [facility] Medical History Anesthesia complication History of COVID-19 (10/2021) Hyperparathyroidism Hypothyroidism SARAH on CPAP RBBB (right bundle branch block) Seasonal allergies Surgical History History of hysterectomy History of lumbar spinal fusion (04/2015) History of parathyroidectomy (08/14/16) Hx laparoscopic cholecystectomy (06/24/18) Hx of bilateral cataract extraction Hx of colonoscopy (11/2012) Hx of fusion of cervical spine (2016) S/P epidural steroid injection Family History (Updated 08/15/22 @ 22:44 [facility] Father Heart attack Mother History of nephrectomy Sister History of multiple cerebrovascular accidents (CVAs) Social History household members: spouse Smoking Status: Former smoker alcohol intake: current Discharge Plan Discharge Plan Patient Disposition: Home Provider Discharge Comment: You were admitted to the hospital with a TIA. This is stroke like symptoms that last less than 24 hours with a negative MRI. This is treated the exact same as a stroke with aspirin and statin which are designed to reduce your risk of stroke. Your rosuvastatin will need to be increased to 20 mg dosing. Please follow up with your primary care provider in the next couple of weeks. Surgery is usually delayed at least 3 months, sometimes 6-9 after TIA or stroke. Discharge orders & Medications Prescriptions: New rosuvastatin 20 mg tablet 20 mg PO BEDTIME 90 Days Qty: 90 0RF Continued metoprolol succinate [Toprol XL] 25 MG tablet extended release 24 hr 25 mg PO QPM Qty: 0 gabapentin 300 mg capsule 300 mg PO BEDTIME Qty: 14 0RF celecoxib 200 mg Capsule 200 mg PO BID metformin 500 mg Tablet 500 mg PO DAILY levothyroxine 125 mcg Tablet 125 mcg PO DAILY doxycycline hyclate 100 mg Tablet 100 mg PO Q OTHER DAY trospium 20 mg Tablet 20 mg PO BID Rx Instructions: administer on an empty stomach PreserVision AREDS-2 250-90-40-1 mg Capsule 1 tab PO BID aspirin 81 mg Capsule 81 mg PO DAILY acetaminophen 500 mg Tablet 500 mg PO TID-QID cyclobenzaprine 10 mg tablet 5 - 10 mg PO BID PRN (Reason: muscle spasm) Qty: 7 0RF Rx Instructions: May cause drowsiness so please take precautions. Discontinued rosuvastatin 5 mg Tablet 5 mg PO QPM Follow up/Referrals: Martha Aldana MD [Primary Care Provider] - Diet/Activity/Treatments Diet: Diet as Tolerated and Regular Activity: As tolerated Visit Report/Discharge Packet Instructions: DI for Transient Ischemic Attack Stand Alone Forms: Patient Portal/API, Stroke Signs & Symptoms Discharge Data Primary Care Provider: Martha Aldana Attending Provider: Sonya Ricks Admit Date/Time: 08/15/22 21:21 Discharges patient from system. Discharge Date/Time: 08/16/22 11:20
--- NOTE | 2022-08-16 10:29 | PT-IP ANOTE ---
Visited with patient; she politely declined PT, stating she feels confident with her ability to get around her home and up/down the stairs her usual way. Had no problem working with OT this morning already. Dr. Rodrigues and d/c carmela Sanchez notified. Will d/c PT orders.
--- NOTE | 2022-08-16 10:29 | OT.IP.EVAL ---
Past Medical History (Last Reviewed 08/15/22 @ 23:31 by Ac Mcgill DO) Anesthesia complication History of COVID-19 (10/2021) Hyperparathyroidism Hypothyroidism SARAH on CPAP RBBB (right bundle branch block) Seasonal allergies Surgical History (Last Reviewed 08/15/22 @ 21:54 by Sonya Ricks [facility]) History of hysterectomy History of lumbar spinal fusion (04/2015) History of parathyroidectomy (08/14/16) Hx laparoscopic cholecystectomy (06/24/18) Hx of bilateral cataract extraction Hx of colonoscopy (11/2012) Hx of fusion of cervical spine (2015) S/P epidural steroid injection Occupational Therapy Inpatient Evaluation/Re-Eval M1 PT/OT-IP Prior Functional Status Start: 08/16/22 09:30 Freq: NEEDED Status: Active Protocol: Document 08/16/22 08:50 [facility] (Rec: 08/16/22 10:29 [facility] [id number]) Medical Review Prior Functional Status Communication independent Mobility and Gait independent Activities of Daily Living and IADL's independent Social History Household Members spouse Living Arrangements House Number of Floors (Floors) Two Floors Number of Stairs To Enter/Railing? 17 steps with right rail. 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 M2 OT-IP Current Condition Start: 08/16/22 09:30 Freq: Status: Active Protocol: Document 08/16/22 08:50 [facility] (Rec: 08/16/22 10:29 [facility] [id number]) Occupational Therapy Current Condition Current Condition Evaluation Date 08/16/22 Treatment Diagnosis TIA Diagnosis Onset Date 08/15/22 M3 OT- IP Subjective and Pain Start: 08/16/22 09:30 Freq: Status: Active Protocol: Document 08/16/22 08:50 [facility] (Rec: 08/16/22 10:29 [facility] [id number]) OT- Subjective Occupational Therapy Visit Type Type Initial Evaluation Visit Start Time 08:50 Visit Stop Time 09:35 Total Visit Minutes 45 Occupational Therapy Visit Comments Patient Comments Pt agreed to get up and also able to talk to pt regarding equipment needs for upcoming back surgery in the near future. Patient/Caregiver Goals TO go home. OT Pain Assessment Pain When Pain Assessed At Rest Pain Present Pain Present Denied Pain M4 OT- IP ADL's Start: 08/16/22 09:30 Freq: Status: Active Protocol: Document 08/16/22 08:50 [facility] (Rec: 08/16/22 10:29 [facility] [id number]) OT ABF-Adxw-Hhgeetk General Evaluation Self-Feeding Ability Independent OT ADL-Grooming General Evaluation Grooming Ability Independent OT ADL-Oral Care General Eval Oral Care Ability Independent OT ADL-Dressing General Eval Lower Body Dressing Ability Independent Areas Needing Assistance Socks OT ADL-Toileting General Evaluation Toileting Ability Independent OT ADL-Bathing Comments OT Bathing Comments Not performed. M5 OT- IP IADL's Start: 08/16/22 09:30 Freq: Status: Active Protocol: Document 08/16/22 08:50 [facility] (Rec: 08/16/22 10:29 [facility] [id number]) OT-Instrumental Activities of Daily Living Home Safety Awareness Awareness of Need for Assistance at Home Good Awareness Ability to Problem Solve Emergency Able to Problem Solve Situations M6 OT- IP Functional Cognition Start: 08/16/22 09:30 Freq: Status: Active Protocol: Document 08/16/22 08:50 [facility] (Rec: 08/16/22 10:29 [facility] [id number]) Cognitive Factors Limiting Selfcare Function Cognitive Ability Level of Alertness Alert Patient Orientation Name,Age,Birthday,Month,Date, Year,Day of Week,Place, Situation Attention Span Ability Capable of Focused Attention, Capable of Sustained Attention Ability to Follow Commands Able to Follow Multi-Step Commands Memory Description Short Term Impaired Safety Awareness No Deficits Noted Problem Solving Ability No deficits Noted Executive Function Ability No Deficits Noted Cognitive Comments Cognitive Assessment Comments Pt intact and scored 49 seconds which implies intact and no impairments for visual attention, speed of processing, executive functioning, mental flexibility and task switching. Pt a little forgetful of recalling items suggested for her upcoming back surgery. Pt states did not sleep well last night. OT- Vision and Hearing OT- Hearing Assessment OT- Hearing Assessment WFL OT- Vision Assessment Visual Acuity WFL Visual Attentiveness WFL Occular Pursuits WFL Visual Convergence WFL Visual Connor WFL Diplopia Absent M7 OT- IP Mobility and Balance Start: 08/16/22 09:30 Freq: Status: Active Protocol: Document 08/16/22 08:50 [facility] (Rec: 08/16/22 10:29 [facility] [id number]) OT- Bed Mobility Assessment Rolling Level of Assistance Independent Supine to Sit Supine to Sit Assist Independent Sit to Supine Sit to Supine Assist Independent Scooting Scooting to Edge of Bed Independent OT-Transfer Assessment Sit to and From Stand Sit to and from Stand Independent Transfers Transfer Ability Independent Technique Transfer Destination Bed,Chair Comments Mobility Comments Pt able to ambulate independently in the room with good safety. OT- Balance Assessment Sitting Balance and Reactions Static Sitting Balance Ability Normal Dynamic Sitting Balance Ability Normal Standing Balance and Reactions Static Standing Balance Ability Normal Dynamic Standing Balance Ability Good M8 OT- IP Objective Assessments Start: 08/16/22 09:30 Freq: Status: Active Protocol: Document 08/16/22 08:50 [facility] (Rec: 08/16/22 10:29 [facility] [id number]) OT Gross Range of Motion Upper Extremity Range of Motion Assessment Within Functional Limits OT Strength Upper Extremity Strength Assessment Within Functional Limits Hand Production Inspector Strength Hand Dominance Right Comments Strength Comments BUE 4+/5 OT- Coordination Assessment Upper Extremity Finger to Nose Test Within Functional Limits Finger Tapping Test Within Functional Limits Comments Coordination Comments RUE needing more time than left hand but intact. R hand 22 seconds with in 75% for her age L hand 24.5 seconds which is between 75-90% for her age. OT-Muscle Tone Assessment Muscle Tone WNL Yes OT Sensation Assessment Comments Summary Comments Decreased proprioception for right wrist. M9 OT- IP Assessment and Plan Start: 08/16/22 09:30 Freq: Status: Active Protocol: Document 08/16/22 08:50 [facility] (Rec: 08/16/22 10:29 [facility] [id number]) OT Summary Assessment and Plan Potential Rehabilitation Potential Excellent Analytic Complexity at Evaluation Low Summary OT Impairments Sensation Progress Towards Goals Safe For Discharge Assessment Summary Pt low complexity and here for TIA and per pt feel back to baseline except for a little tired as did not sleep well last night. Pt was scheduled to have back sx today but was cancelled due to her TIA. Able to go over equipment needs and set-up of her current home and to be thinking of back up plans as her house has 17 steps to enter. Pt to go home today. Frequency of Treatment Frequency Of Treatment Discharge Discharge Recommendations OT Discharge Recommendations Home Home Equipment Needs BSC, shower chair, HHSP, long handled sponge- (suggestions for after pt having back sx in the near future) Transportation Needs at Discharge Private Vehicle
--- NOTE | 2022-08-16 13:17 | CM.DANOTE ---
Patient is an 82 yo female who was admitted on 08/15/22 for TIA. Pt has [facility] for insurance and her PCP is Martha Aldana. EMR was reviewed. Per MD, pt admitted for TIA and to have MRI and Echo and to work with PT/OT. Per RN, pt was scheduled for TLIF this morning prior to her being admitted yesterday with TIA r/o and TLIF cancelled for today and pt will need to reschedule through Ortho. Per OT, pt ambulated well and back to baseline and safe for d/c back home without needs and pt was scheduled for TLIF so OT provided some pre-surg recommendations for possible DME needs and did some education on TLIF and also discussed pt's 12-16 stairs. Pt very appreciative of the discussion and planning for upcoming TLIF. Per PT, pt declined PT eval as she is back to baseline and no needs. Per MD, MRI negative and pt stable for d/c home today with no barriers to discharge. SW met briefly bedside with pt and explained role and she confirms she lives in [facility] with her spouse and both are very active and independent at baseline. Both still drive although pt states that her plan was once she turned 82 yo, she would no longer drive at night. Pt does not use DME for ambulation at baseline and denies any hx of HH or SNF. Pt states her spouse is her DPOA and able to provide physical assist if needed after upcoming TLIF. Pt's sister is also local and supportive and pt now considering backup plan of a Respite Stay at [facility] after TLIF if she cannot tolerate all the stairs to get into her home or stay with her sister. Pt denies any discharge needs for today and wants to d/c home before lunch and spouse will provide transport. Plan: Patient to d/c home today via spouse POV and no further SW needs at this time. Pt disappointed her TLIF surgery had to be cancelled for today but will make additional plans prior to TLIF to ensure safe d/c plan after that upcoming surgery. CLAU Polanco Discharge Planning/Care Management Advanced directive, confirm from FAMILY Start: 08/15/22 22:19 Freq: Q24H Status: Discharge Protocol: Document 08/16/22 07:32 JESSICA (Rec: 08/16/22 07:32 JESSICA [id number]) Advance Directive, confirm on record Time 07:32 Person contacted pt Copy received No CM Discharge Assessment Start: 08/16/22 13:15 Freq: Status: Active Protocol: Document 08/16/22 13:15 [facility] (Rec: 08/16/22 13:17 [facility] [id number]) Discharge Planning Assessment Assigned Shot Lighter CLAU Sanchez DPOA/Assigned Designee Name spouse Jose Contact Information [phone] Advance Directives? Yes Advance Directives on File No History Provided By Patient,Significant Other, Medical Record Has Patient been admitted in last 30 No days? Prior Living Arrangements House Household Members spouse Type of transporation used prior to Drives own vehicle admit Independent with ADL's Yes Is patient alert and oriented? Yes Caregiver for Another No Barriers to Discharge No Discharge Plan Home Transportation Arrangement Spouse to provide transport home Referrals Initiated None needed Whiteboard Updated in Patient Room with Yes name and ext. # of Shot Lighter Review Status In Process Please Provide Date Initial DC 08/16/22 Assessment Was Performed Next Review Type Continued Stay Review
[2022-08-16 22:49] LABS: x Labcorp Estim. Avg Glu (eAG) 126 mg/dL (.)
== END 2022-08-16 11:20 | disposition home or self-care (01) ==
LOC: ED 21:21 → AC 21:22 → ICU 21:50
PROVIDERS: Admitting Provider Nurse Practitioner Family; Emergency Provider Emergency Medicine; PCP Internal Medicine; Referring Provider Emergency Medicine; Visit Provider Nurse Practitioner Family
DX: G45.9 Transient cerebral ischemic attack, unspecified (principal); M47.896 Other spondylosis, lumbar region; E03.9 Hypothyroidism, unspecified; G47.33 Obstructive sleep apnea (adult) (pediatric); E11.9 Type 2 diabetes mellitus without complications; E66.01 Morbid (severe) obesity due to excess calories; R33.9 Retention of urine, unspecified; Z87.891 Personal history of nicotine dependence; Z68.34 Body mass index [BMI] 34.0-34.9, adult
CPT/HCPCS: 36415; 70450; 70496; 70498; 70551; 80048; 80053; 80061; 81003; 83036; 83690; 83735; 83880; 84443; 85025; 85610; 85730; 93005; 96372; 97165; 99284; G0378; J1650; Q9967

== ENCOUNTER → 2022-10-31 14:03 | Outpatient (CLI) | payer OTHER, SELFPAY ==
[2022-08-15 21:22] VITALS: BMI 32.9
[2022-10-31 16:50] LABS: Hemoglobin A1C% w Est Avg Glu 5.7 % (4.0-6.0)
== END ==
PROVIDERS: PCP Internal Medicine; Referring Provider Neurological Surgery; Visit Provider Neurological Surgery
DX: Z01.812 Encounter for preprocedural laboratory examination (principal); E11.9 Type 2 diabetes mellitus without complications
CPT/HCPCS: 36415; 83036

== ENCOUNTER → 2022-10-31 | Outpatient (CLI) | payer OTHER, SELFPAY ==
[2022-08-15 21:22] VITALS: BMI 32.9
--- NOTE | 2022-10-31 | DI.RAD.S_ITS ---
Bone Density Report Name: SHEREEN GONZALEZ Age: 82 Sex: Female Ethnicity: White Date of : 1940 Indication: postmenopausal; screening for osteoporosis; Referring Provider: NAVARRO HAINES Study: Bone densitometry was performed. Exam Date: October 31, 2022 Accession number: [id number] Bone Density: Region BMD T-score Z-score Classification AP Spine(L1, L3, L4) 0.977 -0.7 2.0 Normal Femoral Neck (Left) 0.712 -1.2 1.1 Osteopenia Total Hip (Left) 0.885 -0.5 1.6 Normal Femoral Neck (Right) 0.731 -1.1 1.3 Osteopenia Total Hip (Right) 0.932 -0.1 2.0 Normal Total Hip Mean 0.909 -0.3 1.8 Normal World Health Organization criteria for BMD impression classify patients as: Normal (T-score at or above -1.0), Osteopenia (T-score between -1.0 and -2.5), or Osteoporosis (T-score at or below -2.5). 10-year Fracture Risk(1): Major Osteoporotic Fracture 11% Hip Fracture 2.3% Reported Risk Factors: [place] (), Neck BMD=0.712, BMI=34.8 (1) FRAX(R) Version 3.08. Fracture probability calculated for an untreated patient. Fracture probability may be lower if the patient has received treatment. Previous Exams: -- Region Exam Age BMD T-score BMD Change BMD Change Date g/cm2 vs Baseline vs Previous -- AP Spine (L1,L3-L4) 10/31/2022 82 0.977 -0.7 -0.040 (-4.0%)# -0.040 (-4.0%)# 10/29/2015 75 1.017 -0.3 Total Hip(Left) 10/31/2022 82 0.885 -0.5 -0.036 (-3.9%)# -0.036 (-3.9%)# 10/29/2015 75 0.921 -0.2 Total Hip(Right) 10/31/2022 82 0.932 -0.1 -0.028 (-2.9%)# -0.028 (-2.9%)# 10/29/2015 75 0.960 0.1 -- *Denotes significance at 95% confidence level, LSC for AP Spine = 0.022 g/cm2, LSC for Total Hip = 0.027 g/cm2 # Denotes dissimilar scan types or analysis methods Impression: The patient has low bone mass, based on the Left Femoral Neck T-score. The patient has an estimated ten-year risk of hip fracture of 2.3% and an estimated ten-year risk of major fracture of 11%, based on the WHO FRAX algorithm. No significant bone loss was observed. Discussion: BONE DENSITY IS LOW AT ONE OR MORE SKELETAL SITES. This patient's lowest T-score is low at one or more skeletal sites. It meets the World Health Organization's (WHO) criteria for low bone mass (T-score between -1.0 and -2.5). The patient's 10-year risk of fracture as calculated by FRAX is less than the threshold where pharmacological therapy is recommended by the National Osteoporosis Foundation (NOF). However, all treatment decisions require clinical judgment and consideration of individual patient factors, including patient preferences, comorbidities, previous drug use, risk factors not captured in the FRAX model (e.g., frailty, falls, vitamin D deficiency, increased bone turnover, interval significant decline in bone density) and possible under or overestimation of fracture risk by FRAX. The patient should follow a healthful lifestyle (good nutrition with adequate calcium and vitamin D, and appropriate weight-bearing exercise). Follow-Up: Consider repeating this study in 2 to 3 years to reassess this patient's status, or sooner if there is some new clinical indication. Reported by: JUNE GROVES M.D. on 10/31/2022 2:38:00 PM.
== END ==
LOC: RAD 14:02
PROVIDERS: PCP Internal Medicine; Referring Provider Internal Medicine; Visit Provider Internal Medicine
DX: M85.852 Other specified disorders of bone density and structure, left thigh (principal); E11.9 Type 2 diabetes mellitus without complications; Z01.812 Encounter for preprocedural laboratory examination; E21.3 Hyperparathyroidism, unspecified; Z78.0 Asymptomatic menopausal state; Z87.39 Personal history of other diseases of the musculoskeletal system and connective tissue; Z90.710 Acquired absence of both cervix and uterus; Z92.23 Personal history of estrogen therapy
CPT/HCPCS: 36415; 77080; 83036

== ENCOUNTER → 2022-11-09 11:45 | Outpatient (CLI) | payer OTHER, SELFPAY ==
[2022-08-15 21:22] VITALS: BMI 32.9
[2022-11-09 12:24] LABS: Appearance Urine UA SL CLOUDY; Bilirubin Urine UA NEGATIVE (NEGATIVE); Color Urine UA YELLOW; Glucose Urine UA NEGATIVE (Negative); Ketones Urine UA NEGATIVE (NEGATIVE); Leukocyte Esterase Urine UA 1+ (NEGATIVE); Nitrite Urine UA POSITIVE (Negative); Occult Blood Urine UA NEGATIVE (Negative); Protein Urine UA NEGATIVE (Negative); Urobilinogen Urine UA 0.2 E.U./dL (0.2)
[2022-11-09 12:27] LABS: pH Urine UA 5.5 (4.5-8.0)
[2022-11-09 12:36] LABS: Bacteria Urine Many (>30); Culture Indicated Urine Specimen Cultured; RBC Urine None Seen (0-5/HPF); Squamous Epithelial Cell Urine 1-5 /HPF (0-5/HPF); WBC Urine 10-30/HPF (0-5/HPF)
== END ==
PROVIDERS: PCP Internal Medicine; Referring Provider Neurological Surgery; Visit Provider Neurological Surgery
DX: Z01.812 Encounter for preprocedural laboratory examination (principal); E11.9 Type 2 diabetes mellitus without complications
CPT/HCPCS: 81001; 87077; 87086; 87186

== ENCOUNTER → 2022-11-13 11:57 | Outpatient (CLI) | payer OTHER, SELFPAY ==
[2022-08-15 21:22] VITALS: BMI 32.9
[2022-11-13 12:28] LABS: Appearance Urine UA CLEAR; Bilirubin Urine UA NEGATIVE (NEGATIVE); Color Urine UA YELLOW; Glucose Urine UA NEGATIVE (Negative); Ketones Urine UA NEGATIVE (NEGATIVE); Leukocyte Esterase Urine UA TRACE (NEGATIVE); Nitrite Urine UA NEGATIVE (Negative); Occult Blood Urine UA NEGATIVE (Negative); Protein Urine UA NEGATIVE (Negative); Specific Gravity Urine UA 1.025 (1.000-1.035); Urobilinogen Urine UA 0.2 E.U./dL (0.2)
[2022-11-13 12:31] LABS: Bacteria Urine None Seen; Culture Indicated Urine Cult Not Indicated; RBC Urine None Seen (0-5/HPF); Squamous Epithelial Cell Urine 0-1 /HPF (0-5/HPF); WBC Urine 0-1/HPF (0-5/HPF)
== END ==
PROVIDERS: PCP Internal Medicine; Referring Provider Neurological Surgery; Visit Provider Neurological Surgery
DX: N39.0 Urinary tract infection, site not specified (principal)
CPT/HCPCS: 81001

== ENCOUNTER → 2023-04-17 10:17 | Outpatient (CLI) | payer OTHER, SELFPAY ==
[2022-08-15 21:22] VITALS: BMI 32.9
--- NOTE | 2023-04-17 09:22 | DI.RAD.S_ITS ---
PROCEDURE: XR CHEST 2V INDICATIONS: COUGH TECHNIQUE: 2 views of the chest were acquired. COMPARISON: [facility], CHEST 1 VIEW, 04/21/2015, 18:09. [facility], CHEST 2 VIEW, 12/17/2014, 11:59. FINDINGS: Surgical changes and devices: ACDF is partially visualized. Lungs and pleura: Lungs are clear. No pleural effusions or pneumothorax. Mediastinum: Mediastinal contours are normal. Heart size is normal. Bones and chest wall: No suspicious bony abnormalities. Soft tissues appear unremarkable. IMPRESSION: No acute cardiopulmonary abnormality is seen. Dictated by: James Bynum M.D. on 04/17/2023 at 13:20 Approved by: James Bynum M.D. on 04/17/2023 at 13:21
== END ==
LOC: RAD 10:18
PROVIDERS: PCP Internal Medicine; Referring Provider Student in an Organized Health Care Education/Training Program; Visit Provider Student in an Organized Health Care Education/Training Program
DX: R05.1 Acute cough (principal)
CPT/HCPCS: 71046

== ENCOUNTER → 2024-03-14 12:01 | Outpatient (CLI) | payer MEDICARE, SELFPAY ==
[2022-08-15 21:22] VITALS: BMI 32.9
--- NOTE | 2024-03-14 12:07 | DI.RAD.S_ITS ---
PROCEDURE: XR CERVICAL SPINE 2V OR 3V INDICATIONS: NECK PAIN TECHNIQUE: 3 view(s) of the cervical spine were acquired. COMPARISON: None. FINDINGS: Bones: Post ACDF changes are noted at C4 through C7 levels. Straightening of normal cervical lordosis. No acute fracture or dislocation. Degenerative endplate changes and bilateral uncovertebral hypertrophic changes throughout rest of the cervical spine is seen. No gross hardware loosening or failure. The lateral masses of C1 appear intact on the odontoid view. No suspicious bony lesions. Soft tissues: No prevertebral soft tissue swelling. IMPRESSION: Post ACDF changes at C4 through C7 levels with straightening of normal cervical lordosis. No gross hardware loosening or failure. No acute fracture or dislocation. 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 Dictated by: Scar Bennett M.D. on 03/14/2024 at 13:45 Approved by: Scar Bennett M.D. on 03/14/2024 at 13:58
--- NOTE | 2024-03-14 12:07 | DI.RAD.S_ITS ---
PROCEDURE: XR SHOULDER RT MIN 2V INDICATIONS: SHOULDER PAIN TECHNIQUE: 3 views of the shoulder were acquired. COMPARISON: [facility] [place], [place], XR SHOULDER 2+ VIEWS RIGHT, 01/08/2023, 11:19. FINDINGS: Bones: No fractures or dislocations. Sjdk-ks-sinnelas acromioclavicular joint and glenohumeral joint osteoarthritic changes are seen with joint space narrowing and subchondral sclerosis. No suspicious bony lesions. Visualized ribs appear intact. Soft tissues: No suspicious soft tissue calcifications. IMPRESSION: Udpz-gw-toegotpy right shoulder joint osteoarthritis. No fracture or dislocation. No gross soft tissue abnormalities. Dictated by: Scar Bennett M.D. on 03/14/2024 at 13:58 Approved by: Scar Bennett M.D. on 03/14/2024 at 14:02
== END ==
PROVIDERS: PCP Family Medicine; Referring Provider Nurse Practitioner Family; Visit Provider Nurse Practitioner Family
DX: M47.12 Other spondylosis with myelopathy, cervical region (principal); M19.011 Primary osteoarthritis, right shoulder; M25.511 Pain in right shoulder; M50.00 Cervical disc disorder with myelopathy, unspecified cervical region; G89.29 Other chronic pain; Z98.1 Arthrodesis status
CPT/HCPCS: 72040; 73030

== ENCOUNTER 2024-03-24 08:51 | Emergency (ER) | payer MEDICARE, SELFPAY ==
[2022-08-15 21:22] VITALS: BMI 32.9
[2024-03-24] VITALS (8 sets, daily range): BP systolic 158–228; BP diastolic 74–95; PULSE 56–63; RESP 18; TEMP 36.8; O2SAT 95–96; BMI 32.0
--- NOTE | 2024-03-24 09:17 | ED.BACK ---
HPI - Back Pain/Injury General Chief Complaint: Back Pain/Injury Stated Complaint: Bilateral shoulder pain/neck pain Time Seen by Provider: 03/24/24 09:17 Source: patient History of Present Illness HPI Narrative: 83-year-old female with a past medical history of hyperlipidemia prediabetes, cervical radiculopathy comes into the ED from home for evaluation of persistent right shoulder pain, states that she has been suffering from right shoulder pain ongoing persistent for the past several weeks, does have an appointment with her orthopedic surgeon in a proximally 1 week but due to persistent/worsening symptoms of her right shoulder decided come into the ED for further evaluation treatment. She denies any numbness weakness tingling to her shoulder, denies any new trauma or falls, however she states that she has been unable to sleep secondary to the pain feels like the pain is now radiating to her entire back chest and other shoulder, states that she has tried [id number] medication without any relief. Patient states that she had x-rays of her neck and shoulder performed here on 03/14/2024. Related Data Home Medications Medication Instructions Recorded Confirmed metoprolol succinate 25 mg 25 mg PO QPM ##0 03/08/16 08/16/22 tablet,extended release 24 hr (Toprol XL) acetaminophen 500 mg tablet 500 mg PO TID-QID 08/10/22 08/16/22 aspirin 81 mg capsule 81 mg PO DAILY 08/10/22 08/16/22 celecoxib 200 mg capsule 200 mg PO BID 08/10/22 08/16/22 doxycycline hyclate 100 mg tablet 100 mg PO Q OTHER DAY Chronic UTI 08/10/22 08/16/22 levothyroxine 125 mcg tablet 125 mcg PO DAILY 08/10/22 08/16/22 metformin 500 mg tablet 500 mg PO DAILY Pre-diabetes 08/10/22 08/16/22 trospium 20 mg tablet 20 mg PO BID 08/10/22 08/16/22 vit C 250 mg-vit E 90 mg-zinc 40 1 tab PO BID 08/10/22 08/16/22 mg-copper 1 [id number] capsule (PreserVision AREDS-2) amlodipine 5 mg tablet 5 mg PO DAILY 03/24/24 03/24/24 Previous Rx's Medication Instructions Recorded cyclobenzaprine 10 mg tablet 5 - 10 mg (0.5 - 1 x 10 mg) PO BID 12/01/18 PRN muscle spasm #7 tabs gabapentin 300 mg capsule 300 mg PO BEDTIME #14 caps 05/02/20 diazepam 2 mg tablet (Valium) 2 mg PO BEDTIME PRN muscle spasm 5 03/24/24 days #5 tabs oxycodone-acetaminophen 5 mg-325 1 tab PO Q8H PRN pain 3 days #9 03/24/24 mg tablet (Percocet) tabs Allergies Allergy/AdvReac Type Severity Reaction Status Date / Time metronidazole Allergy Severe Hives Verified 05/02/20 17:27 Penicillins [PENICILLINS] Allergy Unknown Pt does Verified 08/10/22 10:14 not recall reaction tizanidine [TIZANIDINE] Allergy Unknown Pt does Verified 08/10/22 10:14 not recall reaction Review of Systems Review of Systems Narrative: General: Denies fever, chills, weight loss HEENT: Denies headache, eye drainage, eye irritation, head trauma, sore throat, voice change Cardiovascular: Denies any chest pain, palpitations, shortness of breath, tachycardia Respiratory: Denies any shortness of breath, cough, wheeze, stridor GI/: Denies any abdominal pain, nausea, vomiting, diarrhea, bright red blood per rectum, melanotic stools, urinary frequency, urinary retention, dysuria, hematuria MSK: Positive right shoulder pain, Denies any joint pain, muscle pains, swelling Skin: Denies any rashes, lesions, discoloration Neuro: Denies any headache, lightheadedness, dizziness, fainting, weakness Psych: Denies SI/HI Patient History Medical History Anesthesia complication History of COVID-19 (10/2021) Hyperparathyroidism Hypothyroidism SARAH on CPAP RBBB (right bundle branch block) Seasonal allergies Surgical History History of hysterectomy History of lumbar spinal fusion (04/2015) History of parathyroidectomy (08/14/16) Hx laparoscopic cholecystectomy (06/24/18) Hx of bilateral cataract extraction Hx of colonoscopy (11/2012) Hx of fusion of cervical spine (2015) S/P epidural steroid injection Family History (Updated 08/15/22 @ 22:44 by LINDA GivensP-BC) Father Heart attack Mother History of nephrectomy Sister History of multiple cerebrovascular accidents (CVAs) Social History household members: spouse Smoking Status: Former smoker alcohol intake: current Smoking Status: Former smoker alcohol intake frequency: a few times a week Exam Narrative Exam Narrative: General: Cooperative, comfortable, well-developed, not in acute distress HEENT: Normocephalic, atraumatic, PERRLA, normal sclera, eyelids normal, Neck: Active full range of motion, atraumatic Chest: Normal to inspection, negative crepitus, no overlying erythema ecchymosis Respiratory: Normal respiratory effort, not in acute respiratory distress, clear to auscultation bilaterally negative cough, wheeze, tachypnea, rhonchi, rales Cardiology: Regular rate rhythm negative gallop, murmur, rubs GI/: Normal to inspection, soft, nonrigid, no tenderness to palpation, exam deferred MSK: Full range of active range of motion of all 4 extremities, atraumatic, full active passive range of motion of the right shoulder, active range of motion slightly slowed secondary to pain however neurovascularly intact Skin: No rashes lesions noted Neuro: Alert awake oriented x3, moves all 4 extremities spontaneously, cranial nerves intact, able to answer all questions appropriately follows commands appropriately Psych: Cooperative, negative suicidal or homicidal ideations Initial Vital Signs Initial Vital Signs: Vital Signs Temperature 98.3 F 03/24/24 09:06 Pulse Rate 61 03/24/24 09:06 Respiratory Rate 18 03/24/24 09:06 Blood Pressure 228/95 H 03/24/24 09:06 Pulse Oximetry 96 03/24/24 09:06 Oxygen Delivery Method Room Air 03/24/24 09:06 Course Orders Ordered: ED Orders 03/24/24 09:20 EKG-12 Lead Stat Discontinued Medications Amlodipine Besylate (Amlodipine 5 Mg Tablet) 5 mg PO NOW ONE Stop: 03/24/24 09:47 Last Admin: 03/24/24 09:52 Dose: 5 mg Documented By: OSMAR Diazepam (Diazepam 2 Mg Tablet) 2 mg PO NOW ONE Stop: 03/24/24 09:21 Last Admin: 03/24/24 09:52 Dose: 2 mg Documented By: OSMAR Lidocaine (Lidocaine 5% Patch) 1 each TOP NOW ONE Stop: 03/24/24 09:21 Last Admin: 03/24/24 09:52 Dose: 1 each Documented By: OSMAR Oxycodone/Acetaminophen (Oxycodone/Acetaminophen 5/325 Tablet) 1 tab PO NOW ONE Stop: 03/24/24 09:21 Last Admin: 03/24/24 09:52 Dose: 1 tab Documented By: OSMAR Prednisone (Prednisone 20 Mg Tablet) 40 mg PO NOW ONE Stop: 03/24/24 09:46 Last Admin: 03/24/24 09:51 Dose: 40 mg Documented By: OSMAR Vital Signs Vital signs: Vital Signs - 8 hr 03/24/24 09:06 Temperature 98.3 F Pulse Rate 61 Respiratory Rate 18 Blood Pressure 228/95 H Pulse Oximetry 96 Oxygen Delivery Method Room Air MDM - Back Pain/Injury Differential Diagnosis Differential diagnosis: Likely other (Cervical radiculopathy, osteoarthritis, ACS) MDM Narrative Medical decision making narrative: 83-year-old female with a history of prediabetes hyperlipidemia cervical radiculopathy presents for persistent right shoulder pain. Is supposed to see her orthopedic surgeon proximally 1 week but due to persistent pain came into the ED for further evaluation treatment. Bilateral upper extremities neurovascularly intact, review of records show patient had an x-ray of her cervical neck and shoulder on 03/14/2024. Right shoulder showed [id number] right shoulder osteoarthritis, cervical neck showing post ACDF changes at C4 through 6 without any gross abnormalities. Patient had EKG nonischemic in nature, symptoms more likely secondary to osteoarthritis of her right shoulder, had significant improvement of her symptoms after administration of medication, Percocet, Valium here. Also administered her home amlodipine, blood pressure significantly improved. Patient was given strict return precautions she verbalized understanding of this and agrees to being discharged home with outpatient follow up Discharge Plan Departure Patient Disposition: Home Clinical Impression: Chronic right shoulder pain Instructions: DI for Osteoarthritis Activity Restrictions/Additional Instructions: Please follow up with the orthopedic surgeon for his scheduled appointment and your primary care doctor Please read the discharge instructions sheet carefully and bring all papers to all doctor follow-up visits, as it may contain information that your doctor may want to see. Disease processes change and evolve, if your symptoms worsen or if you develop any new symptoms that are concerning to you please return for evaluation. Your evaluation today does not show any evidence of any life-threatening/serious illnesses requiring admission to the hospital or surgery. Please follow-up with your doctor for re-evaluation in approximately 1 day. Seek immediate medical attention for any worrisome symptoms. *If you do not have a primary care provider please contact the [facility] Resource line at [phone]. They will ask some questions about your medical history and help get you set up with a doctor in the community. Prescriptions: New oxycodone-acetaminophen [Percocet] 5-325 mg tablet 1 tab PO Q8H PRN (Reason: pain) 3 Days Qty: 9 0RF diazepam [Valium] 2 mg tablet 2 mg PO BEDTIME PRN (Reason: muscle spasm) 5 Days Qty: 5 0RF No Action metoprolol succinate [Toprol XL] 25 MG tablet extended release 24 hr 25 mg PO QPM Qty: 0 gabapentin 300 mg capsule 300 mg PO BEDTIME Qty: 14 0RF celecoxib 200 mg Capsule 200 mg PO BID metformin 500 mg Tablet 500 mg PO DAILY levothyroxine 125 mcg Tablet 125 mcg PO DAILY doxycycline hyclate 100 mg Tablet 100 mg PO Q OTHER DAY trospium 20 mg Tablet 20 mg PO BID Rx Instructions: administer on an empty stomach PreserVision AREDS-2 250-90-40-1 mg Capsule 1 tab PO BID aspirin 81 mg Capsule 81 mg PO DAILY acetaminophen 500 mg Tablet 500 mg PO TID-QID cyclobenzaprine 10 mg tablet 5 - 10 mg PO BID PRN (Reason: muscle spasm) Qty: 7 0RF Rx Instructions: May cause drowsiness so please take precautions. amlodipine 5 mg tablet 5 mg PO DAILY Referrals: Gus Delvalle MD [Primary Care Provider] - Stand Alone Forms: Patient Portal/API/Survey
--- NOTE | 2024-03-24 09:20 | EKG_ITS ---
[address] [address] Test Date: 2024-03-24 Pat Name: Candice Ayala Department: [facility] Room: Gender: Female Planning Assistant: tiago : 1940 Requested By: Order Number: [id number] Reading MD: Angel Espinoza MD Measurements Intervals [place] Rate: 58 P: 82 AK: 232 QRS: 15 QRSD: 130 T: 157 QT: 476 QTc: 467 Interpretive Statements Sinus bradycardia with 1st degree AV block Nonspecific intraventricular block T wave abnormality, consider inferior ischemia T wave abnormality, consider anterolateral ischemia NO SIGNIFICANT CHANGE FROM PRIOR TRACING Electronically Signed On 03-25-2024 6:47:45 PST by Angel Espinoza MD
[2024-03-24] MEDS: predniSONE 20 MG TABLET 40 MG PO (09:51)
[2024-03-24] MEDS: diazePAM 2 MG TABLET PO (09:52)
[2024-03-24] MEDS: OXYCODONE/ACETAMINOPHEN 5/325 TABLET 1 TAB PO (09:52)
[2024-03-24] MEDS: AMLODIPINE 5 MG TABLET PO (09:52)
[2024-03-24] MEDS: LIDOCAINE 5% PATCH 1 EACH TOP (09:52)
== END 2024-03-24 10:30 | disposition home or self-care (01) ==
PROVIDERS: Emergency Provider Student in an Organized Health Care Education/Training Program; PCP Family Medicine
DX: M25.511 Pain in right shoulder (principal); E78.5 Hyperlipidemia, unspecified; R73.03 Prediabetes; Z88.0 Allergy status to penicillin
CPT/HCPCS: 93005; 99283

== ENCOUNTER → 2024-04-23 09:06 | Outpatient (CLI) | payer MEDICARE, SELFPAY ==
[2022-08-15 21:22] VITALS: BMI 32.9
[2024-04-23 09:45] LABS: Hemoglobin A1C% w Est Avg Glu 5.8 % (4.0-6.0)
== END ==
PROVIDERS: PCP Family Medicine; Referring Provider Nurse Practitioner Family; Visit Provider Nurse Practitioner Family
DX: E11.51 Type 2 diabetes mellitus with diabetic peripheral angiopathy without gangrene (principal)
CPT/HCPCS: 36415; 83036

== ENCOUNTER → 2024-05-29 09:08 | Outpatient (CLI) | payer MEDICARE, SELFPAY ==
[2022-08-15 21:22] VITALS: BMI 32.9
--- NOTE | 2024-05-29 09:09 | DI.MRI.S_ITS ---
PROCEDURE: MR SHOULDER LT WO CON INDICATIONS: LEFT SHOULDER PAIN TECHNIQUE: Noncontrast oblique coronal T2 fast spin echo with fat saturation, oblique sagittal T1 spin echo and T2 fast spin echo with fat saturation, axial T1 spin echo and T2 fast spin echo with fat saturation through the shoulder. COMPARISON: None. FINDINGS: Image quality: Excellent. Rotator cuff: Low to moderate grade articular surface partial-thickness tear involving distal supraspinatus at its insertion on the humeral head is seen extending to musculotendinous junction. There is distal infraspinatus and subscapularis tendinosis. No full-thickness rotator cuff tendon rupture. Sagittal images demonstrate mild to moderate supraspinatus muscle atrophy. Bones and bursae: No bone marrow contusions or fractures. Mild acromioclavicular joint osteoarthritic changes are seen with joint space narrowing and small marginal osteophyte formation. Type 1 acromion, without an os acromiale. Small amount of subacromial subdeltoid bursal fluid is seen, no loose bodies. Capsule and soft tissues: Fraying of superior anterior glenoid labrum with T2 hyperintense signal suggestive of superior anterior labral tear. Proximal intra-articular portion of long head of biceps tendon appears thickened with intrasubstance T2 hyperintense signal near its proximal insertion. IMPRESSION: 1. Low to moderate grade articular surface partial-thickness tear involving distal supraspinatus extending to musculotendinous junction. Distal infraspinatus and subscapularis tendinosis. No full-thickness rotator cuff tendon rupture. Mild to moderate supraspinatus muscle atrophy. 2. Mild acromioclavicular joint osteoarthritis. No fracture or dislocation. Small amount of subacromial subdeltoid bursal fluid, no loose bodies. 3. Suggestion of subtle superior anterior glenoid labral tear. 4. Proximal intra-articular portion of long head of biceps tendinosis. Dictated by: Scar Bennett M.D. on 05/31/2024 at 19:37 Approved by: Scar Bennett M.D. on 05/31/2024 at 19:40
== END ==
PROVIDERS: PCP Nurse Practitioner Family; Referring Provider Nurse Practitioner Family; Visit Provider Nurse Practitioner Family
DX: M75.112 Incomplete rotator cuff tear or rupture of left shoulder, not specified as traumatic (principal); M19.012 Primary osteoarthritis, left shoulder; M25.512 Pain in left shoulder; G89.29 Other chronic pain
CPT/HCPCS: 73221